=== PATIENT | female | born 1955 | race Hispanic/Latino ===

== ENCOUNTER 2020-03-15 23:39 | Inpatient (IN) | payer OTHER ==
[~2020-03-15] VITALS: Ht 157.5 cm; Wt 66.3 kg
[2020-03-16] MEDS ORDERED: IPRATROPIUM/ALBUTEROL SULFATE 4 GM INH INH STA (00:03)
--- NOTE | 2020-03-16 00:23 | NUR ---
CALLED [facility] FOR ADMIT. NO BEDS AVAIL AT THIS TIME
--- NOTE | 2020-03-16 00:50 | NUR ---
SPOKE WITH ANTHONY AT [facility] TRANSFER [facility] NO BEDS AVAIL IN HOSPITAL
--- NOTE | 2020-03-16 01:00 | NUR ---
CALLED [facility] TRANSFER [facility]. NO BEDS AVAIL
--- NOTE | 2020-03-16 01:06 | Emergency Department Note ---
History of Present Illnes History of Present Illness Chief Complaint: Respiratory History of Present Illness This is a 64 year old female .Chief Complaint Comment PT C/O SOB WITH DRY COU GH FOR 3-4DAYS. STATES COVID + TESTED ON February ON [facility].. PT ALSO C/O R-LUNG/CHEST HURTING WITH COUGHING. Historian: Patient Arrival Mode: Car Onset (how long ago): day(s) (3) Location: CHEST Quality: DULL Radiation: Denies non-radiation, Denies back, Denies neck, Denies extremity, Denies abdomen, Denies periumbilical, Denies flank, Denies proximal, Denies distal, Denies other Severity: moderate Onset quality: gradual Duration (how long): day(s) (3) Timing of current episode: constant Progression: worsening Chronicity: new Context: Denies recent illness, Denies recent surgery, Denies recent imm obilization, Denies recent travel, Denies trauma/injury, Denies new medications, Denies hx of DVT/PE, Denies non-compliance w/ medications, Denies other Relieving factors: none Exacerbating factors: none Associated symptoms: Reports cough, Reports shortness of breath; Denies denies other symptoms, Denies confusion, Denies chest pain, Denies diaphoresis, Denies fever/chills, Denies headaches, Denies loss of appetite, Denies malaise, Denies nausea/vomiting, Denies rash, Denies seizure, Denies syncope, Denies weakness, Denies other Treatments prior to arrival: none Past Medical/Family History Physician Review I have reviewed the patient's past medical and family history. Any updates have been documented here. Past Medical History Recent Fever: No Clinical Suspicion of Infectio: No New/Unexplained Change in Ment: No Past Medical History: Hypertension, Diabetes Past Surgical History: Hysterectomy, Other Surgery: LIPOSUCTION Social History Smoking Cessation: Never Smoker Alcohol Use: None Any Illegal Drug Use: No Physically hurt or threatened: No Other Any Pre-Existing Lines (PICC,: No Review of Systems Review of Systems Constitutional: Reports no symptoms EENTM: Reports no symptoms Cardiovascular: Reports no symptoms Respiratory: Reports as per HPI Gastrointestinal: Reports no symptoms Genitourinary: Reports no symptoms Musculoskeletal: Reports no symptoms Integumentary: Reports no symptoms Neurological: Reports no symptoms Psychological: Reports no symptoms Endocrine: Reports no symptoms Hematological/Lymphatic: Reports no symptoms Physical Exam Related Data Triage Vital Signs Vital Signs Date Time Temp Pulse Resp B/P (MAP) Pulse Ox O2 Delivery O2 Flow Rate FiO2 03/15/20 23:49 96.6 94 22 187/88 84 Room Air 03/15/20 23:56 3.0 Vital signs reviewed: Yes Physical Exam CONSTITUTIONAL Constitutional: Present well-developed, Present well-nourished, Present distressed HENT HENT: Present normocephalic, Present atraumatic, Present oropharynx clear/moist, Present nose normal HENT L/R: Present left ext ear normal, Present right ext ear normal EYES Eyes: Reports PERRL, Reports conjunctivae normal NECK Neck: Present ROM normal PULMONARY Pulmonary: Present effort normal, Present rhonchi CARDIOVASCULAR Cardiovascular: Present regular rhythm, Present heart sounds normal, Present capillary refill normal, Present normal rate GASTROINTESTINAL Abdominal: Present soft, Present nontender, Present bowel sounds normal GENITOURINARY Genitourinary: Present exam deferred SKIN Skin: Present warm, Present dry MUSCULOSKELETAL Musculoskeletal: Present ROM normal NEUROLOGICAL Neurological: Present alert, Present oriented x 3, Present no gross motor or sensory deficits PSYCHOLOGICAL Psychological: Present mood/affect normal, Present judgement normal Results Laboratory Lab results reviewed: Yes Imaging Imaging results reviewed: Yes Critical Care Time Total Critical Care Time (min): 45 Critical care time exclusive o: separately billable procedures Critcal care necessary due to: respiratory failure Critcal care time spent by me: develop tx plan w patient/surrogate, discussion w consultants, discussion w primary provider, evaluation patient response to tx, examination of patient, obtaining hx from patient/surrogate, order/review laboratory studies, order/review radiographic studies, pulse oximetry, re- evaluation of patient condition, review of old charts Assessment & Plan Medical Decision Making MDM COVID PNEUMONIA.. BACTERIAL PNEUMONIA Reassessment Reassessment time: 01:05 Reassessment SAME Assessment & Plan Final Impression: (1) Dyspnea (2) Hypoxia (3) Pneumonia due to COVID-19 virus Last Vital Signs Date Time Temp Pulse Resp B/P (MAP) Pulse Ox O2 Delivery O2 Flow Rate FiO2 03/15/20 23:56 3.0 03/15/20 23:49 96.6 94 22 187/88 84 Room Air ALBERTO PATINO MD Mar 16, 2020 00:50
[2020-03-16] MEDS ORDERED: CEFTRIAXONE SOD 1 GM VIAL IV ONE (01:15)
[2020-03-16] MEDS ORDERED: DEXAMETHASONE SOD PHOS 10 MG/1 ML VIAL IV ONE (01:15)
[2020-03-16] MEDS ORDERED: INSULIN REGULAR, HUMAN 100 UNIT/1 ML 3ML VIAL IV ONE (01:15)
--- NOTE | 2020-03-16 01:51 | Diagnostic Imaging Report ---
EXAMINATION: CXR 1 W - [facility] INDICATION: Covid Positive, short of breath COMPARISON: None FINDINGS: TUBES and LINES: None. LUNGS: Normal lung volumes. Scattered bilateral patchy airspace opacities. PLEURA: No pleural effusion or pneumothorax. HEART AND MEDIASTINUM: The cardiomediastinal silhouette is unremarkable. BONES AND SOFT TISSUES: No acute osseous lesion. Soft tissues are unremarkable. UPPER ABDOMEN: No free air under the diaphragm. IMPRESSION: Findings compatible with multifocal viral pneumonia. Signed by: Tee Boswell DO on 03/16/2020 1:48 AM
[2020-03-16] MEDS ORDERED: CEFTRIAXONE SOD 1 GM/NS 50 ML 50 ML IV ONE (02:09)
--- NOTE | 2020-03-16 02:23 | NUR ---
SPOKE WITH ZACHARY JAMISON AT [facility]. PT WILL BE ADMITED TO ER RM 5 SOON AVAIL.
--- NOTE | 2020-03-16 03:16 | NUR ---
CALLED [facility] FOR TRANSPORT. ETA 1 TO 1.5HRS
--- NOTE | 2020-03-16 03:59 | NUR ---
PT RESTING QUIETLY WITH LIGHTS DIMMED,ON 3LNC WITH STATS 97%, HEART RATE 71. NO COMPLAINTS AT THIS TIME. AWAITING EMS TRANSPORT
--- NOTE | 2020-03-16 04:35 | NUR ---
REC'D CALL FROM [facility]. ER RM 5 NOT AVAIL. AT THIS TIME DUE TO CRITICAL PATIENTS IN ER. EMS ARRIVED-CALLED [facility]- THEY WILL HAVE CREW RETURN TO STATION AND WILL SEND OUT NEW CREW AT CHANGE OF SHIFT AT 0600.
[2020-03-16] MEDS: SODIUM CHLORIDE 0.9% 1000ML 1,000 ML IV SCH ×3 (04:46→20:46)
[2020-03-16] MEDS ORDERED: SODIUM CHLORIDE 0.9% 1000ML 1,000 ML ONE (04:48)
--- NOTE | 2020-03-16 04:48 | NUR ---
STARTED NS AT 100CC/HR PER ADMIT ORDERS. PT ASLEEP WITH MASK IN PLACE, O2 VIA NC AT 3L. NO OBVIOUS DISTRESS.
--- NOTE | 2020-03-16 06:35 | NUR ---
PT RESTING QUIETLY WITH EYES CLOSED. NO OBVIOUS ACUTE DISTRESS NOTED.
--- NOTE | 2020-03-16 06:37 | NUR ---
CALLED [facility] FOR TRANSPORT AFTER 714. EMS ETA BETWEEN 0730 AND 0800.
--- NOTE | 2020-03-16 06:49 | NUR ---
PT HAS INHALER AT BEDSIDE THAT IS TO GO WITH PT TO [facility]
--- NOTE | 2020-03-16 07:22 | NUR ---
REPORT TO GEN KAYE FOR RM 299.
--- NOTE | 2020-03-16 08:00 | NUR ---
Daughter called and asked about pt's status.
--- NOTE | 2020-03-16 08:19 | NUR ---
Called [facility] and they have an ETA of about 15 minutes.
--- NOTE | 2020-03-16 09:15 | NUR ---
PT ARRIVED FROM [facility] VIA EMS. PT IS AAOX4. EDUCATED PT ABOUT FALL PRECAUTIONS. PT VERBALIZED UNDERSTANDING. CALL LIGHT WITH IN EASY REACH. INSTRUCTED PT TO USE CALL LIGHT FOR ALL THE NEEDS. BED IS LOW AND LOCKED. SIDE RAILS X2. PT IS ON 4L NC. PT DENIES NEEDS AT THIS TIME.
[2020-03-16 09:30] VITALS: BP 133/69
--- NOTE | 2020-03-16 09:30 | NUR ---
HEMANT KAYE AND INFORMED PT ARRIVAL TO THE UNIT
--- NOTE | 2020-03-16 09:45 | NUR ---
INFORMED NEW CONSULT TO CAMPOS ANTONY AT [facility].
[2020-03-16 09:54] VITALS: BP 133/69
[2020-03-16 10:00] VITALS: BP 133/69
[2020-03-16] MEDS: AZITHROMYCIN 500MG/NS 250 ML 250 ML IV SCH (10:00)
[2020-03-16] MEDS ORDERED: AMLODIPINE BESYL5 MG PO (10:29)
[2020-03-16] MEDS ORDERED: METFORMIN HCL500 M1 PO (10:29)
[2020-03-16] MEDS ORDERED: LOSARTAN-HCTZ1 EAC1 (10:29)
[2020-03-16] MEDS ORDERED: DEXTROSE 50% SYRINGE 50 ML IV PRN (10:45)
[2020-03-16] MEDS: GUAIFENESIN 200 MG/10 ML UDC PO PRN ×2 (11:00→17:25)
[2020-03-16] MEDS: INSULIN LISPRO 100 UNIT/1 ML 3ML VIAL SQ SCH ×3 (11:00→21:00)
[2020-03-16] MEDS: HYDROCHLOROTHIAZIDE 25 MG TAB PO SCH (11:54)
[2020-03-16] MEDS: LOSARTAN POTASSIUM 100 MG TAB PO SCH (11:54)
[2020-03-16] MEDS: METFORMIN HCL 500 MG TAB CR PO SCH ×2 (11:54→17:41)
[2020-03-16] MEDS: AMLODIPINE BESYLATE 5 MG TAB PO SCH (11:54)
[2020-03-16] MEDS: ALBUTEROL SULFATE HFA 8GM INHALATION AEROSOL INH PRN (17:21)
[2020-03-16] MEDS: CHOLECALCIFEROL 400 UNIT TAB PO SCH (17:41)
[2020-03-16] MEDS: ASCORBIC ACID 500 MG TAB PO SCH (17:41)
[2020-03-16] MEDS: ZINC SULFATE 220 MG CAP PO SCH (17:42)
[2020-03-16] MEDS: ENOXAPARIN 30 MG/0.3 ML SYR SC SCH (17:42)
[2020-03-16 18:10] VITALS: BP 119/74
--- NOTE | 2020-03-16 19:10 | NUR ---
BEDSIDE SHIFT REPORT GIVEN TO THE WOOD HEEL FITTER MACHINE RN. PT DENIED FURTHER NEEDS
--- NOTE | 2020-03-16 19:22 | NUR ---
Received change of shift report from AM nurse. Walking rounds completed.
--- NOTE | 2020-03-16 19:37 | Consultation ---
DATE OF CONSULTATION: REASON FOR CONSULTATION: COVID-19. HISTORY OF PRESENT ILLNESS: This patient who is a very pleasant history of diabetes mellitus, comes in with one-week history of shortness of breath and cough. She has been sick for a week, but getting worse for last couple of days. The patient was admitted, I am asked to see her. PAST MEDICAL HISTORY: Diabetes mellitus. PAST SURGICAL HISTORY: Denies. ALLERGIES: NKA. SOCIAL HISTORY: There is no smoking, drug abuse, or alcohol abuse. FAMILY HISTORY: Unremarkable. PHYSICAL EXAMINATION: GENERAL: She is currently alert, oriented, does not seem in acute distress. VITAL SIGNS: Stable, currently afebrile. IMPRESSION: Coronavirus disease-19, concerned about superimposed bacterial infection, diabetes mellitus. Lovenox 0.5 mg/kg q.12 hours and dexamethasone 6 mg daily for 10 days. Supplement vitamin C, D and zinc. Oxygen as tolerated, showed improving, can wean down oxygen. MD MARY Moore/MODL /[id number]
--- NOTE | 2020-03-16 19:47 | History and Physical ---
HISTORY OF PRESENT ILLNESS: The patient is a 64-year-old female with a history of diabetes mellitus, who was diagnosed with COVID-19 two weeks ago. The patient started with cough and increased shortness of breath and presented to the emergency room for admission. The patient is admitted for COVID pneumonia and hypoxia. PAST MEDICAL HISTORY: History of diabetes mellitus, history of hypertension. REVIEW OF SYSTEMS: Negative for chest pain. Positive for shortness of breath. No nausea, no vomiting, or diarrhea. No hematochezia. No hematemesis. No blurry vision. No diplopia. PAST SURGICAL HISTORY: History of hysterectomy and . The patient's other surgeries include liposuction. SOCIAL HISTORY: Nonsmoker. No EtOH. No IV drug abuse. MEDICATIONS: Includes: 1. Amlodipine 5 mg. 2. Losartan 125 on each day. 3. Metformin 500 mg q. 24 hours. PHYSICAL EXAMINATION: VITAL SIGNS: Temperature is 98.2, respirations of 18, blood pressure is 133/69, pulse oximetry of 95% on 4 L of oxygen. HEENT: Normocephalic and atraumatic. Pupils reactive. CVS: S1 and S2 normal. Regular rate and rhythm. ABDOMEN: Soft, nontender. LUNGS: Decreased air entry. EXTREMITIES: No clubbing, no cyanosis, no edema. SEROLOGY: Coronavirus detected. LABORATORY VALUES: Reviewed. Imaging studies reviewed, which shows findings compatible with multifocal viral pneumonia. ASSESSMENT: Ms. Yanet Schneider with: 1. COVID-19 pneumonia. 2. Diabetes. 3. Hypertension. PLAN: Continue with current medication management. She is on hydrochlorothiazide 25, losartan 100, metformin 500. The patient has been started on azithromycin, dexamethasone 6 mg daily. The patient is also on hydrocodone for pain control, enoxaparin 30 mg twice a day and Rocephin 1 g once a day has also been given. The patient has been started on medium dose sliding scale and metformin 500 mg twice a day. Further recommendation per clinical course. We will continue monitoring her electrolytes. We will continue monitoring her chest x-ray and also oxygen status. Further recommendation per clinical course. We will continue to monitor the patient. Consult with ID and Pulmonary has been done. Bryant Antonio MD [facility]/MODL /[id number]
[2020-03-16 20:00] VITALS: BP 132/71
[2020-03-16] MEDS: CEFTRIAXONE SOD 1 GM/NS 50 ML 50 ML IV SCH (20:46)
[2020-03-16] MEDS ORDERED: CEFTRIAXONE SOD 1 GM VIAL IV SCH (21:00)
[2020-03-16] MEDS ORDERED: INSULIN LISPRO 100 UNIT/1 ML 3ML VIAL SQ ONE (21:45)
[2020-03-17] VITALS (8 sets, daily range): BP systolic 135–146; BP diastolic 74–78
[2020-03-17] MEDS: GUAIFENESIN 200 MG/10 ML UDC PO PRN ×2 (04:06→20:38)
[2020-03-17] MEDS: HYDROCODONE/APAP 5MG-325MG TAB PO PRN ×2 (04:06→20:38)
--- NOTE | 2020-03-17 04:17 | NUR ---
Patient coughing. Given meds for cough and also pain-4 generalized.
[2020-03-17 06:03] LABS: BASOPHILS % 0.2 % (0.0-1.0); HEMATOCRIT 37.1 % (34.2-44.1); HEMOGLOBIN 12.2 g/dL (12.0-16.0); LYMPHOCYTES # (AUTO) 0.6 (1.0-3.2); LYMPHOCYTES % 3.2 % (18.0-39.1); MEAN CORPUSCULAR HEMOGLOBIN 29.5 pg (28-32); MEAN CORPUSCULAR HGB CONC 32.9 g/dL (31-35); MEAN CORPUSCULAR VOLUME 89.8 fL (81-99); MONOCYTES % 5.1 % (4.4-11.3); NEUTROPHILS # (AUTO) 17.8 (2.1-6.9); NEUTROPHILS % 89.5 % (38.7-80.0); PLATELET COUNT 378 x10e3/uL (140-360); RED BLOOD COUNT 4.13 x10e6/uL (3.6-5.1); RED CELL DISTRIBUTION WIDTH 11.9 % (11.7-14.4)
[2020-03-17 06:30] LABS: ANION GAP 13.9 mmol/L (8-16); BLOOD UREA NITROGEN 20 mg/dL (7-26); BUN/CREATININE RATIO 29 (6-25); CALCIUM 8.3 mg/dL (8.4-10.2); CARBON DIOXIDE 27 mmol/L (22-29); CHLORIDE 102 mmol/L (98-107); EST GLOMERULAR FILTRATION RATE > 60 ML/MIN (60-); GLUCOSE 256 mg/dL (74-118); POTASSIUM 3.9 mmol/L (3.5-5.1); SODIUM 139 mmol/L (136-145)
--- NOTE | 2020-03-17 07:04 | NUR ---
CHANGE OF SHIFT REPORT RECEIVED FROM PM NURSE. PT IN STABLE CONDITION. WILL CONTINUE TO MONITOR.
[2020-03-17] MEDS: INSULIN LISPRO 100 UNIT/1 ML 3ML VIAL SQ SCH ×4 (08:22→21:00)
[2020-03-17] MEDS ORDERED: DEXAMETHASONE PHOS 4MG/ML 5ML MULTIDOSE VIAL IV SCH (09:00)
[2020-03-17] MEDS: SODIUM CHLORIDE 0.9% 1000ML 1,000 ML IV SCH ×2 (09:30→19:30)
[2020-03-17] MEDS: ZINC SULFATE 220 MG CAP PO SCH (09:34)
[2020-03-17] MEDS: HYDROCHLOROTHIAZIDE 25 MG TAB PO SCH (09:34)
[2020-03-17] MEDS: AMLODIPINE BESYLATE 5 MG TAB PO SCH (09:34)
[2020-03-17] MEDS: ASCORBIC ACID 500 MG TAB PO SCH ×2 (09:34→18:00)
[2020-03-17] MEDS: AZITHROMYCIN 500MG/NS 250 ML 250 ML IV SCH (09:34)
[2020-03-17] MEDS: CHOLECALCIFEROL 400 UNIT TAB PO SCH ×2 (09:34→18:00)
[2020-03-17] MEDS: LOSARTAN POTASSIUM 100 MG TAB PO SCH (09:35)
[2020-03-17] MEDS: METFORMIN HCL 500 MG TAB CR PO SCH ×2 (09:35→18:00)
[2020-03-17] MEDS: DEXAMETHASONE PHOS 4MG/ML 6 MG in SODIUM CHLORIDE 0.9% 50ML 50 ML IV SCH (14:29)
[2020-03-17] MEDS: ENOXAPARIN 30 MG/0.3 ML SYR SC SCH (18:00)
--- NOTE | 2020-03-17 20:06 | NUR ---
Received change of shift report from AM nurse. Walking rounds completed.
[2020-03-17] MEDS: CEFTRIAXONE SOD 1 GM/NS 50 ML 50 ML IV SCH (20:37)
--- NOTE | 2020-03-17 22:28 | Progress Note ---
DATE: SUBJECTIVE: 64-year-old female, on 3 L of oxygen, saturating 96% to 100%, tachycardic. This morning, the patient is afebrile and stable. OBJECTIVE: VITAL SIGNS: Temperature is 98.1, pulse is 74, respirations are 16, blood pressure is 135/75, pulse oximetry of 96%. HEENT: Normocephalic and atraumatic. LUNGS: Decreased breath sounds. CARDIOVASCULAR: S1, S2. Regular rate now. ABDOMEN: Soft, nontender, nondistended. EXTREMITIES: No clubbing, no cyanosis, no edema. LABORATORY VALUES: White count is 19,000 today, hemoglobin of 12 and hematocrit 37.2. Chemistry; sodium 139, potassium 3.9, BUN of 20 and creatinine 0.70. Blood cultures negative so far. IMAGING STUDIES: From yesterday, stable, consistent with multifocal pneumonia. ASSESSMENT: Coronavirus disease-19 pneumonia with possible superimposed bacterial infection. The patient is currently on enoxaparin 30 mg b.i.d., dexamethasone, losartan/hydrochlorothiazide, azithromycin. The patient is also on hydrocodone for pain control and acetaminophen for fever. Chemistries; sodium 139, potassium 3.9, BUN of 20 and creatinine 0.70. Glucoses have been running high, has been covered with insulin sliding scale. Continue to monitor the patient. Glucose control to be better. We will continue monitoring her heart rate. Further recommendation per clinical course and continue with 3 L of nasal cannula. MD KATE Hung/MODL /[id number]
[2020-03-18] VITALS (8 sets, daily range): BP systolic 133–167; BP diastolic 77–88
[2020-03-18] MEDS: SODIUM CHLORIDE 0.9% 1000ML 1,000 ML IV SCH ×2 (04:17→15:30)
[2020-03-18] MEDS: ALBUTEROL SULFATE HFA 8GM INHALATION AEROSOL INH PRN ×3 (04:50→22:00)
--- NOTE | 2020-03-18 04:51 | NUR ---
Patient o2 sats drop 62 to 89. Rapid called Patient placed on nonrebreather. Sats increased to 95%. Patient resting with no farther distress noted.
--- NOTE | 2020-03-18 05:46 | NUR ---
Patient resting quitly at this time. Continue monitor.
[2020-03-18 06:30] LABS: BASOPHILS % 0.2 % (0.0-1.0); HEMATOCRIT 38.4 % (34.2-44.1); HEMOGLOBIN 12.6 g/dL (12.0-16.0); LYMPHOCYTES # (AUTO) 0.5 (1.0-3.2); LYMPHOCYTES % 2.8 % (18.0-39.1); MEAN CORPUSCULAR HEMOGLOBIN 29.7 pg (28-32); MEAN CORPUSCULAR HGB CONC 32.8 g/dL (31-35); MEAN CORPUSCULAR VOLUME 90.6 fL (81-99); MONOCYTES # (AUTO) 0.8 (0.2-0.8); MONOCYTES % 4.3 % (4.4-11.3); NEUTROPHILS # (AUTO) 15.7 (2.1-6.9); NEUTROPHILS % 90.8 % (38.7-80.0); PLATELET COUNT 399 x10e3/uL (140-360); RED BLOOD COUNT 4.24 x10e6/uL (3.6-5.1)
--- NOTE | 2020-03-18 06:47 | NUR ---
Paged Dr Antonio to inform of patient change in condition.
--- NOTE | 2020-03-18 07:00 | NUR ---
BEDSIDE SHIFT REPORT RECEIVED FROM SURFACE WATER TECHNICIAN RN. PT DENIES NEEDS AT THIS TIME.
[2020-03-18] MEDS: INSULIN LISPRO 100 UNIT/1 ML 3ML VIAL SQ SCH ×4 (07:30→22:48)
[2020-03-18 08:13] LABS: BAND NEUTROPHILS % (MANUAL) 3 %; LYMPHOCYTES % (MANUAL) 1 % (19-48); MONOCYTES % (MANUAL) 3 % (3.4-9.0); NEUTROPHILS % (MANUAL) 93 % (40-74)
[2020-03-18] MEDS: METFORMIN HCL 500 MG TAB CR PO SCH ×2 (08:42→17:06)
[2020-03-18] MEDS: HYDROCHLOROTHIAZIDE 25 MG TAB PO SCH (08:43)
[2020-03-18] MEDS: ZINC SULFATE 220 MG CAP PO SCH (08:43)
[2020-03-18] MEDS: CHOLECALCIFEROL 400 UNIT TAB PO SCH ×2 (08:43→17:06)
[2020-03-18] MEDS: ASCORBIC ACID 500 MG TAB PO SCH ×2 (08:43→17:06)
[2020-03-18] MEDS: AMLODIPINE BESYLATE 5 MG TAB PO SCH (08:43)
[2020-03-18] MEDS: LOSARTAN POTASSIUM 100 MG TAB PO SCH (08:43)
[2020-03-18] MEDS: DEXAMETHASONE PHOS 4MG/ML 6 MG in SODIUM CHLORIDE 0.9% 50ML 50 ML IV SCH (09:08)
[2020-03-18] MEDS: AZITHROMYCIN 500MG/NS 250 ML 250 ML IV SCH (10:14)
--- NOTE | 2020-03-18 12:34 | Progress Note ---
DATE: SUBJECTIVE: The patient is a 64-year-old female with history of COVID pneumonia. The patient is currently on Rocephin, dexamethasone, Lovenox. Continues to be on hydrocodone for pain control. Today morning, the patient rapid response was called. The patient has been on non-rebreather. Continues to do well, starting okay on non-rebreather. OBJECTIVE: VITAL SIGNS: Currently, temperature is 97.4, pulse of 61, respirations of 22, blood pressure is 152/81, pulse oximetry of 98% on high-flow. HEENT: Normocephalic and atraumatic. Pupils are reactive. CVS: S1 and S2 normal. LUNGS: Decreased air entry. ABDOMEN: Soft, nontender. EXTREMITIES: No clubbing. No cyanosis. No edema. ASSESSMENT: Ms. Ramirez with: 1. COVID-19 pneumonia with superimposed bacterial infection. 2. History of hypertension. 3. Hyperlipidemia. 4. Diabetes mellitus, uncontrolled. PLAN: Continue current management. A consult with Dr. Yang has been done. We will continue to monitor the patient with Dr. Woo. Dexamethasone, Lovenox, and antibiotics are on board at this time. Further recommendation per clinical course. Glucose control to be achieved and we will monitor the patient currently on high-flow oxygen. MD KATE Hung/MODL /[id number]
[2020-03-18] MEDS: ENOXAPARIN 30 MG/0.3 ML SYR SC SCH (17:06)
--- NOTE | 2020-03-18 18:36 | Consultation ---
DATE OF CONSULTATION: Pulmonary Critical Care Consultation CHIEF COMPLAINT: Cough and pain in the back with inspiration. HISTORY OF PRESENT ILLNESS: The patient is a 64-year-old woman. She has a history of diabetes. She reports being ill for about 2 weeks. She notices cough productive of red tinged phlegm. She also reports pain in her upper back with inspiration. She has dyspnea and fatigue. She has also had some fevers at home. PAST SURGICAL HISTORY: Status post hysterectomy. PAST MEDICAL HISTORY: 1. Diabetes. 2. Hypertension. SOCIAL HISTORY: The patient is a nonsmoker. She does not drink. ALLERGIES: THERE ARE NO KNOWN DRUG ALLERGIES. REVIEW OF SYSTEMS: The patient has some fevers. There is no headache. She has no neck pain. She is not having chest pain except with inspiration. She has some pain in her back. She has some mild cough. She has no abdominal pain. She has no nausea or vomiting. She has no leg swelling. PHYSICAL EXAMINATION: VITAL SIGNS: The patient is afebrile. The blood pressure is 141/85, saturation is 98%. HEENT: Shows no facial swelling or erythema. CARDIAC: Reveals regular rate and rhythm with normal S1, S2. LUNGS: Auscultation of lungs reveals rhonchorous breath sounds bilaterally. There is no wheezing. ABDOMEN: Soft, nontender. There is no rebound or guarding. EXTREMITIES: Shows no leg edema or calf tenderness. There is no cyanosis or clubbing. SKIN: Shows no rashes. NEUROLOGICAL: Shows no focal abnormalities. LABORATORY DATA: BUN to creatinine ratio is 20 to 0.7. Other electrolytes are within normal limits. Blood sugars are now 160 to 200. RADIOGRAPHIC DATA: Chest x-ray shows bilateral infiltrates consistent with multifocal pneumonia. IMPRESSION: 1. Viral pneumonia and probable COVID-19 infection. 2. Diabetes. 3. Hypertension. PLAN: 1. Continue oxygen. She is now on 6 L. We will try and wean this. 2. Continue dexamethasone. 3. Continue current antibiotics. 4. Monitor and control blood sugars. 5. Monitor and control blood pressure. Mesfin Yang MD [facility]/QUENTINL /[id number]
--- NOTE | 2020-03-18 19:30 | NUR ---
BEDSIDE SHIFT REPORT RECEIVED FROM DAY RN. O2 ON PER N/C AT 4 l. USING NRB PRN. RESPIRATIONS ARE EVEN AND UNLABORED. TELE ON - SR. PT RESTING IN BED IN SEMI FOWLERS POSITION. RT AC 20G INTACT AND FLUSHES.PT UP TO BEDSIDE COMMODE WITH MINIMAL ASSIST. CALL LIGHT WITHIN REACH. BED LOCKED AND IN LOW POSITION.
[2020-03-18] MEDS: ACETAMINOPHEN 325 MG TAB PO PRN (20:21)
--- NOTE | 2020-03-18 22:00 | NUR ---
PIV LEAKING. 22 G PLACED IN LEFT WRIST. SITE HEALTHY. OLD IV SITE D/C WITH CATHETER INTACT.PT TOLERATED PROCEDURE WELL.
[2020-03-18] MEDS: CEFTRIAXONE SOD 1 GM/NS 50 ML 50 ML IV SCH (22:48)
[2020-03-19] VITALS (7 sets, daily range): BP systolic 140–168; BP diastolic 76–88
[2020-03-19] MEDS: SODIUM CHLORIDE 0.9% 1000ML 1,000 ML IV SCH ×4 (01:30→22:36)
[2020-03-19] MEDS: ACETAMINOPHEN 325 MG TAB PO PRN (05:34)
[2020-03-19 06:43] LABS: BASOPHILS % 0.3 % (0.0-1.0); EOSINOPHILS % 0.1 % (0.0-6.0); HEMATOCRIT 37.8 % (34.2-44.1); HEMOGLOBIN 12.5 g/dL (12.0-16.0); LYMPHOCYTES # (AUTO) 0.9 (1.0-3.2); MEAN CORPUSCULAR HEMOGLOBIN 29.1 pg (28-32); MEAN CORPUSCULAR HGB CONC 33.1 g/dL (31-35); MEAN CORPUSCULAR VOLUME 87.9 fL (81-99); MONOCYTES # (AUTO) 0.5 (0.2-0.8); MONOCYTES % 3.5 % (4.4-11.3); NEUTROPHILS # (AUTO) 11.2 (2.1-6.9); NEUTROPHILS % 86.3 % (38.7-80.0); PLATELET COUNT 355 x10e3/uL (140-360); RED CELL DISTRIBUTION WIDTH 11.9 % (11.7-14.4)
--- NOTE | 2020-03-19 07:00 | NUR ---
BEDSIDE SHIFT REPORT RECEIVED FROM REGIONAL BRANCH MANAGER RN. PT DENIES NEEDS AT THIS TIME.
[2020-03-19 07:02] LABS: ANION GAP 11.9 mmol/L (8-16); BLOOD UREA NITROGEN 11 mg/dL (7-26); BUN/CREATININE RATIO 18 (6-25); CALCIUM 8.5 mg/dL (8.4-10.2); CARBON DIOXIDE 27 mmol/L (22-29); CHLORIDE 102 mmol/L (98-107); EST GLOMERULAR FILTRATION RATE > 60 ML/MIN (60-); GLUCOSE 117 mg/dL (74-118); SODIUM 138 mmol/L (136-145)
[2020-03-19 07:03] LABS: POTASSIUM 2.9 mmol/L (3.5-5.1)
--- NOTE | 2020-03-19 07:07 | NUR ---
LAB CALLED WITH K CRITICAL 2.9. ENDORSED TO DAY RN- HE WILL CALL PHYSICIAN FOR ORDERS.
[2020-03-19] MEDS ORDERED: POTASSIUM CHLORIDE 20MEQ/100ML 200 ML IV ONE (07:30)
[2020-03-19] MEDS: INSULIN LISPRO 100 UNIT/1 ML 3ML VIAL SQ SCH ×4 (07:30→23:30)
[2020-03-19] MEDS: METFORMIN HCL 500 MG TAB CR PO SCH ×2 (08:44→16:39)
[2020-03-19] MEDS: AMLODIPINE BESYLATE 5 MG TAB PO SCH (08:44)
[2020-03-19] MEDS: HYDROCHLOROTHIAZIDE 25 MG TAB PO SCH (08:44)
[2020-03-19] MEDS: LOSARTAN POTASSIUM 100 MG TAB PO SCH (08:44)
[2020-03-19] MEDS: ASCORBIC ACID 500 MG TAB PO SCH ×2 (08:45→16:39)
[2020-03-19] MEDS: CHOLECALCIFEROL 400 UNIT TAB PO SCH ×2 (08:45→16:39)
[2020-03-19] MEDS: ZINC SULFATE 220 MG CAP PO SCH (08:45)
[2020-03-19] MEDS ORDERED: AMLODIPINE BESYLATE 5 MG TAB PO SCH (09:00)
[2020-03-19] MEDS: DEXAMETHASONE PHOS 4MG/ML 6 MG in SODIUM CHLORIDE 0.9% 50ML 50 ML IV SCH (09:58)
[2020-03-19] MEDS ORDERED: CALCIUM CARBONATE 500 MG CHEWABLE TABS PO PRN (10:00)
[2020-03-19] MEDS: AZITHROMYCIN 500MG/NS 250 ML 250 ML IV SCH (10:29)
[2020-03-19] MEDS: PANTOPRAZOLE 40 MG 10ML VIAL IV SCH (10:29)
--- NOTE | 2020-03-19 10:53 | Progress Note ---
DATE: SUBJECTIVE: This is a 64-year-old female, who came in with COVID-19 pneumonia. The patient continues to have beyond 6-7 L of oxygen with mouth. Continues to have some shortness of breath on minimal exertion. Currently on Rocephin, dexamethasone, Lovenox, hydrocodone for pain control. Systolic blood pressure constantly remaining elevated and sugars are controlled right now. MEDICATIONS: Medicine list reviewed. OBJECTIVE: VITAL SIGNS: Temperature 97.5, pulse of 81, respirations of 20, 92% on 5-6 L of oxygen. HEENT: Normocephalic and atraumatic. Pupils are reactive. CVS: S1 and S2 normal. LUNGS: Decreased air entry. ABDOMEN: Soft, nontender, and nondistended. EXTREMITIES: No clubbing, no cyanosis, and/or no edema. LABORATORY DATA: The patient's white count from today, white count has gone down to 13,000, and platelet count down to 355, neutrophil count at 86.3. IMAGING STUDIES: None done since . ASSESSMENT AND PLAN: Ms. Yanet Ramirez with: 1. Viral pneumonia, coronavirus disease-2019 pneumonia. 2. Diabetes. 3. Hypertension. PLAN: 1. Continue oxygen. She is on 6 L weaning protocol. 2. Continue with dexamethasone. She is on antibiotics. Continue the same. 3. Tighter blood sugar control, so we will add amlodipine 5 mg regimen for blood pressure control. Further recommendation per clinical course. The patient is stable. We will monitor her saturation and wean off oxygen. MD KATE Hung/QUENTINL /[id number]
[2020-03-19] MEDS: ENOXAPARIN 30 MG/0.3 ML SYR SC SCH (16:39)
--- NOTE | 2020-03-19 17:10 | Progress Note ---
DATE: SUBJECTIVE: The patient feels slightly better, but still has some pain in her back and chest with inspiration. She is still on 6 L of oxygen. PHYSICAL EXAMINATION: VITAL SIGNS: The patient's blood pressure is 142/86, saturation is 94%. She is on 6 L nasal cannula. HEENT: No facial swelling or erythema. CARDIAC: Regular rate and rhythm with normal S1, S2. LUNGS: Auscultation of lungs reveals rhonchorous breath sounds bilaterally. There is no wheezing. ABDOMEN: Soft, nontender. There is no rebound or guarding. EXTREMITIES: No leg edema or calf tenderness. There is no cyanosis or clubbing. SKIN: No rashes. NEUROLOGICAL: No focal abnormalities. LABORATORY DATA: White blood cell count is 13 and the hemoglobin 12.5, and platelet count is 355. Potassium is 2.9. Other electrolytes are within normal limits. IMPRESSION: 1. Acute respiratory failure. 2. Viral pneumonia and coronavirus disease-19 infection. 3. Hypokalemia. 4. Diabetes. 5. Hypertension. PLAN: 1. Continue to wean oxygen. 2. Continue Fleet dexamethasone. 3. Complete current antibiotics. 4. Monitor and control blood sugars. 5. Repeat chest x-ray in a.m.. MD MARCIE Thurman/JODIE /[id number]
[2020-03-19] MEDS: ALBUTEROL SULFATE HFA 8GM INHALATION AEROSOL INH PRN (19:00)
--- NOTE | 2020-03-19 19:36 | NUR ---
BEDSIDE SHIFT REPORT RECEIVED FROM DAY RN. PT IS ALERT AND ORIENTED X3. O2 7L HF N/C ON. NONREBREATHER MASK AT BEDSIDE PRN. RESPIRATIONS ARE EVEN AND UNLABORED. TELE ON. LEFT PIV NS INFUSING AT 50 ML/HR SITE HEALTHY. CALL LIGHT WITHIN REACH. BED LOCKED AND IN LOW POSITION. PT VOIDING WITHOUT DIFFICULTY PER BEDSIDE COMMODE.
[2020-03-19] MEDS: CEFTRIAXONE SOD 1 GM/NS 50 ML 50 ML IV SCH (22:36)
[2020-03-20] VITALS (7 sets, daily range): BP systolic 150–163; BP diastolic 71–84
--- NOTE | 2020-03-20 07:00 | NUR ---
BEDSIDE SHIFT REPORT RECEIVED FROM COLLAR SETTER RN. PT DENIES NEEDS AT THIS TIME.
[2020-03-20] MEDS: SODIUM CHLORIDE 0.9% 1000ML 1,000 ML IV SCH ×2 (07:30→17:30)
--- NOTE | 2020-03-20 07:41 | NUR ---
REPORT GIVEN TO DAY RN. RADIOLOGY CALLED FOR CXR. BMP TO BE DRAWN.CONDITION STABLE.
[2020-03-20 08:18] LABS: ANION GAP 15.7 mmol/L (8-16); BLOOD UREA NITROGEN 10 mg/dL (7-26); BUN/CREATININE RATIO 16 (6-25); CALCIUM 8.4 mg/dL (8.4-10.2); CARBON DIOXIDE 29 mmol/L (22-29); CHLORIDE 101 mmol/L (98-107); CREATININE, SERUM 0.62 mg/dL (0.57-1.11); EST GLOMERULAR FILTRATION RATE > 60 ML/MIN (60-); GLUCOSE 154 mg/dL (74-118); POTASSIUM 3.7 mmol/L (3.5-5.1); SODIUM 142 mmol/L (136-145)
--- NOTE | 2020-03-20 08:22 | Progress Note ---
DATE: SUBJECTIVE: The patient is a 64-year-old female, who came in with COVID pneumonia. The patient continues to be on oxygen. Does have some shortness of breath on deep breath and also on exertion. Currently on insulin, she is on Rocephin, metformin, Lovenox 30 mg acute b.i.d. pantoprazole for GI prophylaxis and also for reflux. The patient is also on azithromycin and hydrocodone as needed for pain. OBJECTIVE: VITAL SIGNS: Temperature is 98.1, pulse of 67, respirations of 20, blood pressure is 150/81, pulse oximetry of 100%, she is on high-flow. LABORATORY VALUES: White count is 13,000 yesterday, down. Chemistries 170s to 180s serology as noted. ASSESSMENT: Ms. Yanet Ramirez with: 1. COVID-19 pneumonia, acute respiratory failure. 2. Diabetes mellitus. 3. Hypokalemia, replaced yesterday. 4. Hypertension. PLAN: Continue to wean oxygen. Continue on dexamethasone. Continue antibiotic. Continue on insulin. Continue on weaning of oxygen further recommendation per clinical course. We will continue to monitor the patient along with consultants. MD KATE Hung/MODL /[id number]
[2020-03-20] MEDS: INSULIN LISPRO 100 UNIT/1 ML 3ML VIAL SQ SCH ×4 (08:52→21:00)
[2020-03-20] MEDS: METFORMIN HCL 500 MG TAB CR PO SCH ×2 (08:59→17:37)
[2020-03-20] MEDS: PANTOPRAZOLE 40 MG 10ML VIAL IV SCH (08:59)
[2020-03-20] MEDS: HYDROCHLOROTHIAZIDE 25 MG TAB PO SCH (09:00)
[2020-03-20] MEDS: ZINC SULFATE 220 MG CAP PO SCH (09:00)
[2020-03-20] MEDS: LOSARTAN POTASSIUM 100 MG TAB PO SCH (09:00)
[2020-03-20] MEDS: AMLODIPINE BESYLATE 10 MG TAB PO SCH (09:00)
[2020-03-20] MEDS: CHOLECALCIFEROL 400 UNIT TAB PO SCH ×2 (09:00→17:37)
[2020-03-20] MEDS: ASCORBIC ACID 500 MG TAB PO SCH ×2 (09:00→17:37)
[2020-03-20] MEDS: DEXAMETHASONE PHOS 4MG/ML 6 MG in SODIUM CHLORIDE 0.9% 50ML 50 ML IV SCH (09:02)
--- NOTE | 2020-03-20 10:29 | Diagnostic Imaging Report ---
EXAMINATION: CHEST SINGLE (PORTABLE) INDICATION: Viral pneumonia COMPARISON: Chest radiograph of 03/15/2020 FINDINGS: LINES/TUBES:EKG leads overlie the chest. LUNGS:The lungs are moderately inflated. Increasing bilateral multifocal airspace opacities. PLEURA:No pleural effusion or pneumothorax. MEDIASTINUM:The cardiomediastinal silhouette appears normal in size and shape. BONES/SOFT TISSUES:No acute osseous injury. ABDOMEN:No free air under the diaphragm. IMPRESSION: Increasing bilateral multifocal airspace opacities consistent with known viral pneumonia. Signed by: Lotus Paredes MD on 03/20/2020 10:26 AM
--- NOTE | 2020-03-20 16:23 | Progress Note ---
DATE: SUBJECTIVE: The patient is still having some dyspnea. She reports some nasal congestion. PHYSICAL EXAMINATION: VITAL SIGNS: The blood pressure is 152/71, saturation is now 91% on 8 L. HEENT: Shows no facial swelling or erythema. CARDIAC: Reveals regular rate and rhythm with normal S1 and S2. LUNGS: Auscultation of lungs reveals crackles at the bases. There is no wheezing. ABDOMEN: Soft and nontender. There is no rebound or guarding. EXTREMITIES: Shows no leg edema or calf tenderness. There is no cyanosis or clubbing. SKIN: Shows no rashes. LABORATORY DATA: BUN, creatinine and electrolytes are within normal limits. IMPRESSION: 1. Viral pneumonia and COVID-19 infection. 2. Diabetes mellitus. 3. Hypertension. PLAN: 1. Continue oxygen and wean as tolerated. 2. Dexamethasone. 3. Continue to monitor and control blood sugars. 4. Lovenox. 5. Continue antibiotics. Mesfin Yang MD [facility]/JODIE /[id number]
[2020-03-20] MEDS: ENOXAPARIN 30 MG/0.3 ML SYR SC SCH (17:37)
--- NOTE | 2020-03-20 19:15 | NUR ---
Received nursing shift report from morning nurse. Pt alert and oriented to name. Denies pain at this time. O2 @8L hi flow NC. Call mccarthy within reach.
[2020-03-20] MEDS: CEFTRIAXONE SOD 1 GM/NS 50 ML 50 ML IV SCH (21:00)
[2020-03-21] VITALS (9 sets, daily range): BP systolic 137–161; BP diastolic 65–79
[2020-03-21 05:43] LABS: BASOPHILS % 0.3 % (0.0-1.0); HEMATOCRIT 37.7 % (34.2-44.1); HEMOGLOBIN 12.6 g/dL (12.0-16.0); LYMPHOCYTES # (AUTO) 0.6 (1.0-3.2); LYMPHOCYTES % 4.5 % (18.0-39.1); MEAN CORPUSCULAR HEMOGLOBIN 29.4 pg (28-32); MEAN CORPUSCULAR HGB CONC 33.4 g/dL (31-35); MEAN CORPUSCULAR VOLUME 87.9 fL (81-99); MONOCYTES # (AUTO) 0.8 (0.2-0.8); MONOCYTES % 5.9 % (4.4-11.3); NEUTROPHILS # (AUTO) 12.3 (2.1-6.9); NEUTROPHILS % 86.8 % (38.7-80.0); PLATELET COUNT 346 x10e3/uL (140-360); RED BLOOD COUNT 4.29 x10e6/uL (3.6-5.1)
[2020-03-21 06:11] LABS: ANION GAP 15.4 mmol/L (8-16); BLOOD UREA NITROGEN 11 mg/dL (7-26); BUN/CREATININE RATIO 19 (6-25); CALCIUM 8.5 mg/dL (8.4-10.2); CARBON DIOXIDE 25 mmol/L (22-29); CHLORIDE 102 mmol/L (98-107); CREATININE, SERUM 0.59 mg/dL (0.57-1.11); EST GLOMERULAR FILTRATION RATE > 60 ML/MIN (60-); GLUCOSE 129 mg/dL (74-118); POTASSIUM 3.4 mmol/L (3.5-5.1); SODIUM 139 mmol/L (136-145)
[2020-03-21] MEDS: INSULIN LISPRO 100 UNIT/1 ML 3ML VIAL SQ SCH ×4 (07:30→21:00)
--- NOTE | 2020-03-21 07:30 | NUR ---
PATIENT IS AWAKE, ALERT, AND IN STABLE CONDITION WITH NO S/S OF RESPIRATORY DISTRESS- NO PAIN VOICED. 02 APPLIED AT 6L HIGH FLOW; NON-REBREATHER AVAILABLE FOR PATIENT NEAR BEDSIDE. TELEMETRY APPLIED. PATIENT REFUSING CONTINUOUS FLUID AT THIS TIME. CALL LIGHT IS WITHIN REACH, PATIENT INSTRUCTED TO CALL FOR ASSISTANCE NEEDED.
[2020-03-21] MEDS: ASCORBIC ACID 500 MG TAB PO SCH ×2 (08:06→16:33)
[2020-03-21] MEDS: CHOLECALCIFEROL 400 UNIT TAB PO SCH ×2 (08:06→16:33)
[2020-03-21] MEDS: METFORMIN HCL 500 MG TAB CR PO SCH ×2 (08:06→16:33)
[2020-03-21] MEDS: AMLODIPINE BESYLATE 10 MG TAB PO SCH (08:06)
[2020-03-21] MEDS: ZINC SULFATE 220 MG CAP PO SCH (08:06)
[2020-03-21] MEDS: HYDROCHLOROTHIAZIDE 25 MG TAB PO SCH (08:07)
[2020-03-21] MEDS: LOSARTAN POTASSIUM 100 MG TAB PO SCH (08:07)
[2020-03-21] MEDS: PANTOPRAZOLE 40 MG 10ML VIAL IV SCH (08:07)
[2020-03-21] MEDS: VANCOMYCIN 1GM/NS 250 ML 250 ML IV SCH ×2 (11:37→22:58)
[2020-03-21] MEDS: DEXAMETHASONE SOD PHOS INJ 4 MG/ML VIAL IV SCH (11:37)
[2020-03-21] MEDS: MEROPENEM 500MG/ NS 50ML 50 ML IV SCH ×2 (13:29→22:00)
[2020-03-21] MEDS: SODIUM CHLORIDE 0.9% 1000ML 1,000 ML IV SCH (13:30)
[2020-03-21] MEDS ORDERED: POTASSIUM CHLORIDE 20 MEQ TAB CR PO SCH (15:00)
--- NOTE | 2020-03-21 15:20 | Progress Note ---
DATE: Pulmonary Critical Care Progress Note SUBJECTIVE: The patient feels better overall, but still has some back pain. She notes some congestion. PHYSICAL EXAMINATION: VITAL SIGNS: The blood pressure is 150/72 and saturation is 94%. The pulse is 84. HEENT: Shows no facial swelling or erythema. CARDIAC: Reveals regular rate and rhythm with normal S1 and S2. LUNGS: Auscultation of lungs reveals crackles at the bases. There is no wheezing. ABDOMEN: Soft and nontender. There is no rebound or guarding. EXTREMITIES: Shows no leg edema or calf tenderness. There is no cyanosis or clubbing. SKIN: Shows no rashes. NEUROLOGICAL: Shows no focal abnormalities. LABORATORY DATA: BUN to creatinine ratio is normal. Electrolytes within normal limits. White blood cell count is 14 and other blood counts were normal. IMPRESSION: 1. Viral pneumonia and COVID-19 infection. 2. Diabetes mellitus. 3. Hypertension. PLAN: 1. Continue oxygen and wean as tolerated. 2. Complete dexamethasone. 3. Continue to monitor and control blood sugars. 4. Lovenox. 5. Complete antibiotics. Mesfin Yang MD [facility]/MODL /[id number]
[2020-03-21] MEDS: ENOXAPARIN 30 MG/0.3 ML SYR SC SCH (16:34)
--- NOTE | 2020-03-21 19:26 | NUR ---
PATIENT IS IN STABLE CONDITION WITH NO S/S OF RESPIRATORY DISTRESS- NO PAIN VOICED. TELEMETRY APPLIED. 02 APPLIED AT 5L HIGH FLOW WITH EXTENSION; NON-REBREATHER AVAILABLE FOR PATIENT NEAR BEDSIDE. CALL LIGHT IS WITHIN REACH, PATIENT INSTRUCTED TO CALL FOR ASSISTANCE NEEDED. REPORT GIVEN TO ONCOMING NURSE.
--- NOTE | 2020-03-21 19:27 | NUR ---
Nutrition Screen Note RD Recommendation for Physician: - Continue current diet Plan of Care: RD following, monitoring for tolerance and adequacy Nutrition reason for involvement: Early LOS Primary Diagnose(s): pneumonia due to Covid-19 PMH: DM, HTN Ht: 62 in Wt: 151 lb BMI: 27.6 kg/m2 IBW: [address] Assessment: 03/21: 64 YOF admitted for pneumonia due to Covid-19, pt tested + 2 weeks [employer]. Pt with hypoxia and SOB on admit. Pt evaluated for LOS. Attempted to call pt room, no answer- unable to obtain hx at this time. No wt loss or poor intake reported per admit. No GI distress, LBM 03/20. Skin intact. Chart reviewed. Labs and meds noted. Will continue to monitor. Current Diet: 1800 ADA Malnutrition Evaluation (03/21/20) The patient does not meet criteria for a specified degree of malnutrition at this time. Will re-evaluate at follow-up as appropriate. Unable to assess per current isolation protocol. Diet Education Needs Assessment: Diet education not indicated at this time Diet tolerance: tolerating Nutrition Care Level: low Signed: Promise De La Paz RD, LD, [facility]
--- NOTE | 2020-03-21 19:38 | NUR ---
Completed shift report from morning nurse. Pt alert and oriented to name, lying in bed HOB 60 degrees. Denies pain at this time. Call mccarthy within reach.
--- NOTE | 2020-03-21 20:06 | Progress Note ---
DATE: SUBJECTIVE: A 64-year-old female, who came in with COVID pneumonia. The patient still continues to be sating about 4 L on nasal cannula. Does complain of some oral stomatitis. The patient complains of some pain on eating. OBJECTIVE: VITAL SIGNS: Temperature is 97.7, pulse of 88, respirations of 18, blood pressure is 142/76, pulse oximetry of 91% on 4 L of oxygen. HEENT: Normocephalic and atraumatic. Pupils are reactive. Oral mucosa with candidiasis. CVS: S1 and S2 regular. LUNGS: Decreased air entry. ABDOMEN: Soft, nontender, nondistended. EXTREMITIES: No clubbing, no cyanosis, no edema. IMAGING STUDIES: Done from yesterday shows increased bilateral multifocal airspace opacities consistent with mild pneumonia. MEDICATIONS: The patient has an addition of vancomycin and changed to meropenem. ASSESSMENT: Ms. James Holt with: 1. COVID pneumonia. 2. Diabetes mellitus. 3. Hypertension. 4. Hypoxemia. 5. Respiratory failure. PLAN: Continue with dexamethasone. Continue with changed antibiotic, vancomycin, Merrem, Lovenox and also continue with oxygenation and O2 supplementation. Further recommendation per clinical course. Bryant Antonio MD [facility]/MODL /[id number]
[2020-03-21 20:28] LABS: BASOPHILS # (AUTO) 0.1 (0.0-0.1); BASOPHILS % 0.4 % (0.0-1.0); HEMATOCRIT 40.1 % (34.2-44.1); HEMOGLOBIN 13.3 g/dL (12.0-16.0); LYMPHOCYTES # (AUTO) 0.3 (1.0-3.2); LYMPHOCYTES % 1.9 % (18.0-39.1); MEAN CORPUSCULAR HEMOGLOBIN 29.5 pg (28-32); MEAN CORPUSCULAR HGB CONC 33.2 g/dL (31-35); MEAN CORPUSCULAR VOLUME 88.9 fL (81-99); MONOCYTES # (AUTO) 0.5 (0.2-0.8); MONOCYTES % 3.1 % (4.4-11.3); NEUTROPHILS # (AUTO) 16.1 (2.1-6.9); NEUTROPHILS % 92.8 % (38.7-80.0); PLATELET COUNT 365 x10e3/uL (140-360); RED BLOOD COUNT 4.51 x10e6/uL (3.6-5.1); RED CELL DISTRIBUTION WIDTH 12.1 % (11.7-14.4)
[2020-03-21] MEDS: NYSTATIN SUSPENSION 5 ML UDC PO SCH (21:00)
[2020-03-21] MEDS: HYDROCODONE/APAP 5MG-325MG TAB PO PRN (22:00)
[2020-03-22] VITALS (8 sets, daily range): BP systolic 133–163; BP diastolic 68–89
--- NOTE | 2020-03-22 04:54 | NUR ---
Blood drawn x1 stick, Pt tolerated well. No acute distress noted. O2 @5L Hi flow NC. Call light within reach.
[2020-03-22] MEDS: NYSTATIN SUSPENSION 5 ML UDC PO SCH ×5 (05:00→21:00)
[2020-03-22] MEDS: MEROPENEM 500MG/ NS 50ML 50 ML IV SCH ×3 (05:54→22:20)
[2020-03-22 05:59] LABS: ANION GAP 13.9 mmol/L (8-16); BLOOD UREA NITROGEN 13 mg/dL (7-26); BUN/CREATININE RATIO 20 (6-25); CALCIUM 8.7 mg/dL (8.4-10.2); CARBON DIOXIDE 27 mmol/L (22-29); CHLORIDE 99 mmol/L (98-107); CREATININE, SERUM 0.66 mg/dL (0.57-1.11); EST GLOMERULAR FILTRATION RATE > 60 ML/MIN (60-); GLUCOSE 272 mg/dL (74-118); POTASSIUM 3.9 mmol/L (3.5-5.1); SODIUM 136 mmol/L (136-145)
[2020-03-22] MEDS: INSULIN LISPRO 100 UNIT/1 ML 3ML VIAL SQ SCH ×4 (07:30→21:00)
--- NOTE | 2020-03-22 07:30 | NUR ---
PATIENT IS AWAKE, ALERT, AND IN STABLE CONDITION WITH NO S/S OF RESPIRATORY DISTRESS. PATIENT DENIES PAIN. TELEMETRY APPLIED. 02 APPLIED AT 7L NC HIGH FLOW; NON-REBREATHER AVAILABLE NEAR PATIENT'S BEDSIDE. BEDSIDE COMMODE AVAILABLE BY PATIENT. CALL LIGHT IS WITHIN REACH, PATIENT INSTRUCTED TO CALL FOR ASSISTANCE NEEDED.
[2020-03-22] MEDS: PANTOPRAZOLE 40 MG 10ML VIAL IV SCH (08:54)
[2020-03-22] MEDS: METFORMIN HCL 500 MG TAB CR PO SCH ×2 (08:54→16:10)
[2020-03-22] MEDS: LOSARTAN POTASSIUM 100 MG TAB PO SCH (08:55)
[2020-03-22] MEDS: HYDROCHLOROTHIAZIDE 25 MG TAB PO SCH (08:55)
[2020-03-22] MEDS: CHOLECALCIFEROL 400 UNIT TAB PO SCH ×2 (08:56→16:11)
[2020-03-22] MEDS: AMLODIPINE BESYLATE 10 MG TAB PO SCH (08:56)
[2020-03-22] MEDS: ASCORBIC ACID 500 MG TAB PO SCH ×2 (08:56→16:11)
[2020-03-22] MEDS: ZINC SULFATE 220 MG CAP PO SCH (08:56)
--- NOTE | 2020-03-22 09:29 | Diagnostic Imaging Report ---
EXAMINATION: CHEST SINGLE (PORTABLE) INDICATION: Viral pneumonia COMPARISON: Chest radiograph 03/20/2020 FINDINGS: LINES/TUBES:EKG leads overlie the chest. LUNGS:Lung volumes are low. Multifocal bilateral patchy airspace opacities. PLEURA:No pleural effusion or pneumothorax. MEDIASTINUM:The cardiomediastinal silhouette appears normal in size and shape. BONES/SOFT TISSUES:No acute osseous injury. ABDOMEN:No free air under the diaphragm. IMPRESSION: Multifocal pneumonia, slightly worse compared to 03/20/2020. Signed by: Lotus Paredes MD on 03/22/2020 9:26 AM
[2020-03-22] MEDS: VANCOMYCIN 1GM/NS 250 ML 250 ML IV SCH ×2 (10:55→23:30)
[2020-03-22] MEDS: DEXAMETHASONE SOD PHOS INJ 4 MG/ML VIAL IV SCH (13:00)
[2020-03-22] MEDS: ENOXAPARIN 30 MG/0.3 ML SYR SC SCH (16:11)
--- NOTE | 2020-03-22 19:19 | NUR ---
PATIENT IS IN STABLE CONDITION WITH NO S/S OF RESPIRATORY DISTRESS- NO PAIN VOICED. TELEMETRY APPLIED. 02 APPLIED AT 6L NC HIGH FLOW; NON-REBREATHER AVAILABLE NEAR PATIENT AT BEDSIDE. BEDSIDE COMMODE AVAILABLE NEAR PATIENT'S BEDSIDE. CALL LIGHT IS WITHIN REACH, PATIENT INSTRUCTED TO CALL FOR ASSISTANCE NEEDED. REPORT GIVEN TO ONCOMING NURSE.
--- NOTE | 2020-03-22 19:35 | NUR ---
Patient visited in room during nursing rounds. On droplet isolation for positive covid test. Alert and oriented x3. Ambulatory in room and uses bedside commode prn. Sinus rhythm (80) on telemetry reading. Pt on IV antibiotic treatment (IV Vancomycin and IV Merrem) as scheduled. O2 saturation 95% on 6L Hi-flow NC. Call mccarthy within reach. Will monitor pt closely.
--- NOTE | 2020-03-22 19:40 | Progress Note ---
DATE: SUBJECTIVE: The patient briefly required oxygen today, but is now back to 6 L. She continues to have some pain with inspiration. She has some cough. PHYSICAL EXAMINATION: VITAL SIGNS: The patient is afebrile. The vital signs are stable. CARDIAC: Reveals regular rate and rhythm with normal S1 and S2. LUNGS: Auscultation of lungs reveals rhonchorous breath sounds. ABDOMEN: Soft and nontender. LABORATORY DATA: White blood cell count is 17.29, hemoglobin is 13.3, and the platelet count is 365. The BUN to creatinine ratio is normal. The electrolytes are within normal limits and the blood sugar is mildly elevated at 211. RADIOGRAPHIC DATA: Chest x-ray shows multifocal pneumonia. IMPRESSION: 1. Viral pneumonia and COVID-19 infection. 2. Diabetes mellitus. 3. Hypertension. PLAN: 1. Continue oxygen. 2. Complete dexamethasone. 3. Continue Lovenox. 4. Complete antibiotics. 5. Continue to monitor and control blood sugars. Mesfin Yang MD [facility]/JODIE /[id number]
--- NOTE | 2020-03-22 20:25 | Progress Note ---
DATE: SUBJECTIVE: The patient is a 64-year-old female, who came in with COVID pneumonia. The patient continues to desat and satting at about 7 L with 92%. The patient continues to feel short of breath, had sores in the mouth. The patient has been treated with nystatin for candidiasis. OBJECTIVE: VITAL SIGNS: Temperature is 98.0, blood pressure is 141/60, sat is 91, pulse oximetry of 95% on nasal cannula 7 L. HEENT: Normocephalic and atraumatic. LUNGS: Decreased air entry in all lung ballard. ABDOMEN: Soft, nontender, nondistended. EXTREMITIES: No clubbing, no cyanosis, no edema. LABORATORY STUDIES: White count is gone up to 17,000 again, hemoglobin 13.3, hematocrit of 40.2, neutrophil count 92.8. Chemistry; shows sodium of 136, BUN of 13, creatinine 0.66. The glucose in the 200s to 300s. Imaging study shows worsening of pneumonia. ASSESSMENT: 1. COVID-Pneumonia. 2. Acute respiratory failure. 3. Hypertension. 4. Hypoxemia. PLAN: The patient is currently on insulin, enoxaparin 30 mg twice a day, meropenem, and vancomycin. Zosyn was discontinued. PLAN: Continue current management. Continue with dexamethasone. Further recommendation per clinical course. We will try monitoring her blood sugars better, also start her on basal insulin. Bryant Antonio MD [facility]/MODL /[id number]
[2020-03-22] MEDS: INSULIN GLARGINE 100 UNITS/ML VIAL SQ SCH (21:00)
--- NOTE | 2020-03-22 21:00 | NUR ---
Visited pt in room along with [employer] (Cassi). Pt stated she had lost her personal pulse oximeter machine and that she could not find it anywhere in the room. Patient assisted in looking for the missing pulse oximeter but without any success. Pt aware it was not taken by nurse or [employer]. Pt does not seem too upset about it.
[2020-03-23] VITALS (8 sets, daily range): BP systolic 128–176; BP diastolic 69–84
[2020-03-23] MEDS: AMLODIPINE BESYLATE 10 MG TAB PO SCH (03:40)
[2020-03-23] MEDS: NYSTATIN SUSPENSION 5 ML UDC PO SCH ×5 (05:30→21:15)
[2020-03-23] MEDS: MEROPENEM 500MG/ NS 50ML 50 ML IV SCH ×3 (06:00→21:30)
[2020-03-23 06:22] LABS: BASOPHILS % 0.3 % (0.0-1.0); EOSINOPHILS % 0.1 % (0.0-6.0); HEMATOCRIT 38.8 % (34.2-44.1); HEMOGLOBIN 12.7 g/dL (12.0-16.0); LYMPHOCYTES # (AUTO) 0.8 (1.0-3.2); LYMPHOCYTES % 5.8 % (18.0-39.1); MEAN CORPUSCULAR HEMOGLOBIN 28.9 pg (28-32); MEAN CORPUSCULAR HGB CONC 32.7 g/dL (31-35); MEAN CORPUSCULAR VOLUME 88.4 fL (81-99); MONOCYTES % 7.1 % (4.4-11.3); NEUTROPHILS # (AUTO) 11.7 (2.1-6.9); NEUTROPHILS % 84.9 % (38.7-80.0); PLATELET COUNT 373 x10e3/uL (140-360); RED BLOOD COUNT 4.39 x10e6/uL (3.6-5.1); RED CELL DISTRIBUTION WIDTH 12.1 % (11.7-14.4)
[2020-03-23 07:00] LABS: ALANINE AMINOTRANSFERASE 28 IU/L (0-55); ALBUMIN 2.3 g/dL (3.5-5.0); ALBUMIN/GLOBULIN RATIO 0.5 (0.8-2.0); ALKALINE PHOSPHATASE 71 IU/L (40-150); ANION GAP 17.1 mmol/L (8-16); BLOOD UREA NITROGEN 11 mg/dL (7-26); BUN/CREATININE RATIO 20 (6-25); CALCIUM 8.9 mg/dL (8.4-10.2); CARBON DIOXIDE 24 mmol/L (22-29); CHLORIDE 101 mmol/L (98-107); CREATININE, SERUM 0.56 mg/dL (0.57-1.11); EST GLOMERULAR FILTRATION RATE > 60 ML/MIN (60-); GLUCOSE 145 mg/dL (74-118); POTASSIUM 4.1 mmol/L (3.5-5.1); SODIUM 138 mmol/L (136-145)
[2020-03-23] MEDS: METFORMIN HCL 500 MG TAB CR PO SCH ×2 (09:24→16:00)
[2020-03-23] MEDS: PANTOPRAZOLE 40 MG 10ML VIAL IV SCH (09:24)
[2020-03-23] MEDS: ZINC SULFATE 220 MG CAP PO SCH (09:25)
[2020-03-23] MEDS: CHOLECALCIFEROL 400 UNIT TAB PO SCH ×2 (09:25→16:00)
[2020-03-23] MEDS: LOSARTAN POTASSIUM 100 MG TAB PO SCH (09:25)
[2020-03-23] MEDS: ASCORBIC ACID 500 MG TAB PO SCH ×2 (09:25→16:00)
[2020-03-23] MEDS: HYDROCHLOROTHIAZIDE 25 MG TAB PO SCH (09:25)
[2020-03-23] MEDS: INSULIN LISPRO 100 UNIT/1 ML 3ML VIAL SQ SCH ×4 (09:26→21:15)
--- NOTE | 2020-03-23 09:30 | NUR ---
patient appearing very anxious and worked up. instructed patient to take slow breaths and focus on the present. reminded patient that she will be okay and are here if she needs us.
--- NOTE | 2020-03-23 09:52 | Progress Note ---
DATE: SUBJECTIVE: The patient seen and evaluated. Available labs and notes reviewed. Discussed with Dr. Woo. Please refer to chart for more information. The patient is seen with the nurse. REVIEW OF SYSTEMS: Remains with shortness of breath and anxiety. Patient tells me that she is on Zoloft at home. She does not know the dosage. Otherwise, no nausea, vomiting, fever, chest pain. Shortness of breath seems to be stable and improved slightly. OBJECTIVE: VITAL SIGNS: Temperature 98.3, pulse 83, respirations 24, blood pressure 144/70. GENERAL: Alert and oriented, no acute distress. The patient has a 6 L of high-flow nasal cannula with saturation of 93-98%, also has a 10 L of a non-rebreather on standby in case when her anxiety attacks or when she goes to bedside commode. The patient was tested on 03/20/2020, and showed O2 saturation of 88% on room air. CV: S1 and S2. CHEST: Equal expansion. Decreased breath sounds. No acute distress. ABDOMEN: Soft, obese, nontender. HEENT: Moist. No pallor. No JVD. MEDICATIONS: Reviewed. The patient is on meropenem, vancomycin IV, vitamin C, vitamin D, Lovenox and zinc sulfate. LABORATORY STUDIES: White count improved to 13.72 from 17.29 with a platelet count of 373, creatinine of 0.56. Vancomycin trough was 7.5 yesterday on 03/22/2020. Serology: Coronavirus PCR was detected on 03/16/2020.. IMAGING: No new radiology studies available. ASSESSMENT AND PLAN: 1. Coronavirus disease-19 negative pneumonia. 2. Bilateral multifocal pneumonia. 3. Anxiety. 4. Depression. 5. Diabetes. 6. Hypertension. 7. Leukocytosis is improved. 8. Status post Zithromax and Rocephin. Now, patient is started on Merrem and vancomycin IV on 03/21/2020 secondary to multifocal pneumonia. We will continue with Lovenox, vitamin C, dexamethasone, and zinc. Dexamethasone for a total of 10 days. Clinically, no acute distress. Please refer to chart for more information. Dictated by Jorge Eric PA-C (Al) Ean Woo MD /MODL /[id number]
[2020-03-23] MEDS: VANCOMYCIN 1GM/NS 250 ML 250 ML IV SCH ×2 (11:29→23:20)
[2020-03-23] MEDS: DEXAMETHASONE SOD PHOS INJ 4 MG/ML VIAL IV SCH (11:36)
--- NOTE | 2020-03-23 13:40 | Progress Note ---
DATE: SUBJECTIVE: The patient is having less dyspnea. Her oxygen is down to 6 L. She has less chest discomfort. PHYSICAL EXAMINATION: VITAL SIGNS: The saturation is 100% on 6 L. Blood pressure is 149/78 and the pulse is 80. HEENT: No facial swelling or erythema. CARDIAC: Regular rate and rhythm with normal S1, S2. LUNGS: Auscultation of lungs reveals crackles at the bases. There is no wheezing. ABDOMEN: Soft, nontender. There is no rebound or guarding. EXTREMITIES: No leg edema or calf tenderness. There is no cyanosis or clubbing. SKIN: No rashes. NEUROLOGICAL: No focal abnormalities. LABORATORY DATA: White blood cell count is 13.7, hemoglobin is 12.7. The platelet count is 373. BUN to creatinine ratio is normal. Other electrolytes within normal limits. IMPRESSION: 1. Acute respiratory failure. 2. Viral pneumonia and coronavirus disease-19 infection. 3. Diabetes mellitus. 4. Hypertension. PLAN: 1. Continue to wean oxygen. 2. Continue Lovenox. 3. Complete dexamethasone. 4. Monitor and control blood sugars. Mesfin Yang MD [facility]/MODL /[id number]
--- NOTE | 2020-03-23 16:35 | Progress Note ---
DATE: SUBJECTIVE: A 64-year-old female, who came in COVID pneumonia with acute respiratory failure on 7 L of oxygen and she is 100% at this time. depression and anxiety. OBJECTIVE: VITAL SIGNS: Temperature is 98.3, pulse of 88, respirations of 20, blood pressure is 149/78. The patient is on 6 L at 100% pulse oximetry. HEENT: Normocephalic. CVS: S1 and S2 normal. Mild decrease in her Anna dermatitis. LUNGS: Decreased air entry. ABDOMEN: Soft, nontender, nondistended. EXTREMITIES: No clubbing, no cyanosis, no edema. LABORATORY VALUES: Today's white count is 13,000, decreased from 17 yesterday, neutrophil count is low. Chemistries; show sodium 138, potassium 4.1, BUN of 11, creatinine 0.56. Glucoses running in the 180s. ASSESSMENT: Ms. Yanet Ramirez with: 1. Acute respiratory failure secondary to COVID-19 pneumonia. 2. Diabetes. 3. Hypertension. Continue with dexamethasone. Continue with Lovenox. Continue with antibiotic. As per ID recommendation wean off oxygen. Possible discharge tomorrow depending on saturation and also level of functionality. Further recommendation per clinical course. We will continue to monitor the patient. MD KATE Hung/MODL /[id number]
--- NOTE | 2020-03-23 17:02 | NUR ---
patient moved from 6L to 4L on high flow nasal cannula. tolerating well.
--- NOTE | 2020-03-23 19:25 | NUR ---
Patient visited in room during nursing rounds. On droplet isolation for positive covid test. Alert and oriented x3. Ambulatory in room and uses bedside commode prn. Sinus rhythm (77) on telemetry reading. Pt on IV antibiotic treatment (IV Vancomycin and IV Merrem) as scheduled. O2 saturation 96% on 4L Hi-flow NC. Call mccarthy within reach. Will monitor pt closely.
--- NOTE | 2020-03-23 19:30 | NUR ---
Current peripheral IV (22g on left wrist) placed on 03/18/20. Pt refused for new peripheral IV placement. Pt stated "as long as it works, I'd like to keep it." Current IV flushes fine and no sign of infiltration at this time.
[2020-03-23] MEDS: SERTRALINE HCL 50 MG TAB PO SCH (21:15)
[2020-03-23] MEDS: INSULIN GLARGINE 100 UNITS/ML VIAL SQ SCH (21:15)
[2020-03-24] VITALS (7 sets, daily range): BP systolic 128–172; BP diastolic 65–97
[2020-03-24] MEDS: NYSTATIN SUSPENSION 5 ML UDC PO SCH ×5 (04:30→22:09)
[2020-03-24] MEDS: LOSARTAN POTASSIUM 100 MG TAB PO SCH (06:15)
[2020-03-24] MEDS: MEROPENEM 500MG/ NS 50ML 50 ML IV SCH ×3 (06:15→22:09)
[2020-03-24] MEDS: INSULIN LISPRO 100 UNIT/1 ML 3ML VIAL SQ SCH ×4 (07:30→21:00)
--- NOTE | 2020-03-24 07:48 | Progress Note ---
DATE: SUBJECTIVE: The patient is here for COVID pneumonia. The patient has been doing well on oxygen, still saturating at 6 L on 100%. No other complaints. The patient's mouth ulcers and александр have decreased. OBJECTIVE: VITAL SIGNS: Temperature is 97.8, T-max of 99.0, blood pressure 172/79, pulse oximetry of 93% on 4 L right now. HEENT: Normocephalic, atraumatic. CVS: S1 and S2 normal. Regular rate and rhythm. ABDOMEN: Soft, nontender, nondistended. EXTREMITIES: No clubbing, no cyanosis, no edema. ASSESSMENT: Ms. Ramirez with acute respiratory failure, secondary to coronavirus disease pneumonia, diabetes mellitus, hypertension. PLAN: Continue with Lovenox. Continue with antibiotics. Wean off oxygen. Possibly can discharge today with O2. MEDICATIONS: The patient is currently on amlodipine 10 mg and we will keep on insulin protocol and insulin glargine. Further recommendation per clinical course. Bryant Antonio MD [facility]/MODL /[id number]
[2020-03-24] MEDS: ALBUTEROL SULFATE HFA 8GM INHALATION AEROSOL INH PRN (07:50)
[2020-03-24] MEDS: CHOLECALCIFEROL 400 UNIT TAB PO SCH ×2 (08:51→16:26)
[2020-03-24] MEDS: ZINC SULFATE 220 MG CAP PO SCH (08:51)
[2020-03-24] MEDS: METFORMIN HCL 500 MG TAB CR PO SCH ×2 (08:51→16:26)
[2020-03-24] MEDS: HYDROCHLOROTHIAZIDE 25 MG TAB PO SCH (08:51)
[2020-03-24] MEDS: ASCORBIC ACID 500 MG TAB PO SCH ×2 (08:51→16:26)
[2020-03-24] MEDS: PANTOPRAZOLE 40 MG 10ML VIAL IV SCH (08:51)
--- NOTE | 2020-03-24 09:00 | NUR ---
patient switched from 4L high flow to 5L nasal cannula. doing well at this time. wctm.
[2020-03-24 11:01] LABS: BASOPHILS % 0.1 % (0.0-1.0); EOSINOPHILS % 0.2 % (0.0-6.0); HEMATOCRIT 37.8 % (34.2-44.1); HEMOGLOBIN 12.5 g/dL (12.0-16.0); LYMPHOCYTES # (AUTO) 1.2 (1.0-3.2); LYMPHOCYTES % 8.9 % (18.0-39.1); MEAN CORPUSCULAR HEMOGLOBIN 29.2 pg (28-32); MEAN CORPUSCULAR HGB CONC 33.1 g/dL (31-35); MEAN CORPUSCULAR VOLUME 88.3 fL (81-99); MONOCYTES # (AUTO) 1.1 (0.2-0.8); MONOCYTES % 8.4 % (4.4-11.3); NEUTROPHILS # (AUTO) 10.8 (2.1-6.9); NEUTROPHILS % 80.9 % (38.7-80.0); PLATELET COUNT 421 x10e3/uL (140-360); RED BLOOD COUNT 4.28 x10e6/uL (3.6-5.1); RED CELL DISTRIBUTION WIDTH 12.1 % (11.7-14.4)
--- NOTE | 2020-03-24 11:09 | Progress Note ---
DATE: SUBJECTIVE: The patient is seen and evaluated. Available labs and notes reviewed. Discussed with Dr. Woo. Clinically, the patient looks better. She is less distressed. Oxygen is being delivered between 4 to 5 L/minute through the nasal cannula. IV saturation level of 93% to 95%. No complaints. She is happy with the progress. PHYSICAL EXAMINATION: VITAL SIGNS: Temperature 97.6, pulse is 78, respiration 21, and blood pressure 144/97. GENERAL: Alert and oriented. No acute distress. CV: S1 and S2. CHEST: Equal expansion. Decreased breath sounds. No acute distress. ABDOMEN: Soft, nontender, and no distention. HEENT: Moist. No pallor. No JVD. EXTREMITIES: Moves all. MEDICATIONS: Reviewed and from ID point of view, the patient is on zinc sulfate, vitamin C, vitamin D, Merrem, and vancomycin IV. Lovenox dropped out of medication list. LABORATORY STUDIES: White count of 13.72, improved with a hemoglobin of 12.7. No CBC or BMP from today. Creatinine was 0.56. LFT was within normal limit on 03/23. RADIOLOGY STUDIES: No new radiology studies available. ASSESSMENT AND PLAN: 1. COVID-19 pneumonia. 2. Bilateral multifocal pneumonia. 3. Concerned superimposed bacterial infection. 4. Depression. 5. Diabetes. 6. Anxiety. 7. Hypertension. 8. Leukocytosis, improving. 9. No new labs from today. We are going to review with the Lovenox. Get a CBC and BMP today. Follow up with vancomycin trough, which is pending. Continue with other medications. Dexamethasone for 10 days. Wean off oxygen. Further management of this patient is based on daily findings on laboratory and physical examination. Dictated by Jorge Eric PA-C (Al) Ean Woo MD /MODL /[id number]
[2020-03-24 11:51] LABS: ANION GAP 12.6 mmol/L (8-16); BLOOD UREA NITROGEN 11 mg/dL (7-26); BUN/CREATININE RATIO 18 (6-25); CALCIUM 8.8 mg/dL (8.4-10.2); CARBON DIOXIDE 27 mmol/L (22-29); CHLORIDE 100 mmol/L (98-107); CREATININE, SERUM 0.62 mg/dL (0.57-1.11); EST GLOMERULAR FILTRATION RATE > 60 ML/MIN (60-); GLUCOSE 151 mg/dL (74-118); POTASSIUM 3.6 mmol/L (3.5-5.1); SODIUM 136 mmol/L (136-145)
[2020-03-24] MEDS: DEXAMETHASONE SOD PHOS INJ 4 MG/ML VIAL IV SCH (12:29)
[2020-03-24] MEDS: VANCOMYCIN 1GM/NS 250 ML 250 ML IV SCH ×2 (13:08→23:41)
--- NOTE | 2020-03-24 17:32 | Progress Note ---
DATE: SUBJECTIVE: The patient still has some dyspnea, although she is improving. She has less cough. PHYSICAL EXAMINATION: VITAL SIGNS: Blood pressure is 158/77, saturation is 95% on 5 L. Pulse is 81. HEENT: No facial swelling or erythema. CARDIAC: Reveals regular rate and rhythm. Normal S1, S2. LUNGS: Auscultation of lungs reveals crackles at the bases. There is no wheezing. ABDOMEN: Soft and nontender. There is no rebound or guarding. EXTREMITIES: No leg edema or calf tenderness. IMPRESSION: 1. Acute respiratory failure. 2. Viral pneumonia and coronavirus disease-19 infection. 3. Diabetes. 4. Hypertension. PLAN: 1. Continue to wean oxygen. 2. Lovenox. 3. Complete dexamethasone. 4. Monitor and control blood sugars. Mesfin Yang MD [facility]/MODL /[id number]
--- NOTE | 2020-03-24 19:17 | NUR ---
received report from day nurse. patient is resting comfortably in the bed. bed is in lowest position and call light is within reach. will continue to monitor patient.
[2020-03-24] MEDS: INSULIN GLARGINE 100 UNITS/ML VIAL SQ SCH (21:00)
[2020-03-24] MEDS ORDERED: SODIUM CHLORIDE 0.9% 250ML 250 ML ONE (21:41)
[2020-03-24] MEDS: SERTRALINE HCL 50 MG TAB PO SCH (22:09)
[2020-03-24] MEDS: ENOXAPARIN 30 MG/0.3 ML SYR SC SCH (22:09)
[2020-03-24] MEDS: AMLODIPINE BESYLATE 10 MG TAB PO SCH (22:09)
[2020-03-25] VITALS (9 sets, daily range): BP systolic 146–166; BP diastolic 73–87
[2020-03-25] MEDS: NYSTATIN SUSPENSION 5 ML UDC PO SCH ×5 (05:20→21:46)
[2020-03-25] MEDS: MEROPENEM 500MG/ NS 50ML 50 ML IV SCH ×3 (05:20→21:46)
--- NOTE | 2020-03-25 07:00 | NUR ---
RECEIVED REPORT FROM PM RN. PT IS ALERT STANDING AT THE SIDE OF THE BED, PT IS SOB AND ANXIOUS, STATES SHE JUST CAME FROM THE RESTROOM. INSTRUCTED THE PATIENT TO TAKE DEEP BREATHS. PT STATES THAT SHE "SAW THE BLOOD OF BALDEMAR IN HER BED LAST NIGHT" PT GIVEN REASSURANCE, CALL LIGHT WITHIN REACH AND INSTRUCTED PT TO CALL RN FOR HELP
--- NOTE | 2020-03-25 07:05 | NUR ---
change of shift report given to day nurse.
[2020-03-25] MEDS: INSULIN LISPRO 100 UNIT/1 ML 3ML VIAL SQ SCH ×4 (07:30→21:53)
[2020-03-25] MEDS: HYDROCHLOROTHIAZIDE 25 MG TAB PO SCH (09:16)
[2020-03-25] MEDS: LOSARTAN POTASSIUM 100 MG TAB PO SCH (09:16)
[2020-03-25] MEDS: ASCORBIC ACID 500 MG TAB PO SCH ×2 (09:16→16:38)
[2020-03-25] MEDS: PANTOPRAZOLE 40 MG 10ML VIAL IV SCH (09:16)
[2020-03-25] MEDS: METFORMIN HCL 500 MG TAB CR PO SCH ×2 (09:16→16:38)
[2020-03-25] MEDS: CHOLECALCIFEROL 400 UNIT TAB PO SCH ×2 (09:16→16:38)
[2020-03-25] MEDS: ZINC SULFATE 220 MG CAP PO SCH (09:16)
[2020-03-25] MEDS: ENOXAPARIN 30 MG/0.3 ML SYR SC SCH ×2 (09:16→21:46)
[2020-03-25] MEDS: VANCOMYCIN 1GM/NS 250 ML 250 ML IV SCH ×2 (12:17→22:49)
[2020-03-25] MEDS: DEXAMETHASONE SOD PHOS INJ 4 MG/ML VIAL IV SCH (12:17)
--- NOTE | 2020-03-25 17:12 | Progress Note ---
DATE: SUBJECTIVE: The patient still has some dyspnea with exertion. Her O2 is at 5 L. PHYSICAL EXAMINATION: VITAL SIGNS: The patient is afebrile. The blood pressure is 166/90. Heart rate is 70. CARDIAC: Reveals regular rate and rhythm with normal S1 and S2. LUNGS: Auscultation of lungs reveals crackles at the bases. There is no wheezing. ABDOMEN: Soft, nontender. There is no rebound or guarding. EXTREMITIES: Shows no leg edema or calf tenderness. There is no cyanosis or clubbing. SKIN: Shows no rashes. NEUROLOGIC: Shows no focal abnormalities. LABORATORY DATA: Blood sugars are 150-250. BUN to creatinine ratio is normal. Other electrolytes are within normal limits. CBC is within normal limits. IMPRESSION: 1. Acute respiratory failure. 2. Viral pneumonia, coronavirus disease-19 infection. 3. Diabetes. PLAN: 1. Decrease oxygen to 4 L. 2. Home O2 evaluation. 3. Lovenox. 4. Complete dexamethasone. 5. Monitor and control blood sugars. Mesfin Yang MD [facility]/MODL /[id number]
--- NOTE | 2020-03-25 18:02 | Progress Note ---
DATE: SUBJECTIVE: Ms. James Holt is doing better. There are no new complaints. PHYSICAL EXAMINATION: GENERAL: She is currently alert and oriented. VITAL SIGNS: Stable, currently afebrile. HEENT: She is not icteric. NECK: Supple. CHEST: Clear. IMPRESSION: Respiratory failure, COVID-19, diabetes mellitus can be discharged home with oxygen, albuterol inhaler as needed. Eliquis 2.5 mg p.o. b.i.d. She is on 5 L, but clinically stable. We will reassess. MD MARY Moore/MODL /[id number]
[2020-03-25] MEDS: SERTRALINE HCL 50 MG TAB PO SCH (21:46)
[2020-03-25] MEDS: AMLODIPINE BESYLATE 10 MG TAB PO SCH (21:46)
[2020-03-25] MEDS: INSULIN GLARGINE 100 UNITS/ML VIAL SQ SCH (21:54)
[2020-03-26] VITALS (8 sets, daily range): BP systolic 135–154; BP diastolic 71–78
[2020-03-26] MEDS: MEROPENEM 500MG/ NS 50ML 50 ML IV SCH ×3 (05:02→20:26)
[2020-03-26] MEDS: NYSTATIN SUSPENSION 5 ML UDC PO SCH ×5 (05:02→20:26)
--- NOTE | 2020-03-26 07:00 | NUR ---
received report from pm RN. pt is alert resting in bed, no s/s of distress. resp non-labored. call light within reach and instructed pt to call RN for help
--- NOTE | 2020-03-26 07:02 | NUR ---
report given to day nurse.
--- NOTE | 2020-03-26 07:06 | NUR ---
[facility] 21.[address] spoke [address] Zee with Dr. Tejada's answering service, waiting for call back 707: Dr tejada called back and gave orders to d/c vancomycin.
--- NOTE | 2020-03-26 08:34 | Progress Note ---
DATE: SUBJECTIVE: The patient is still continue to do very well, where she still feels like she is significantly improving. OBJECTIVE: VITAL SIGNS: Temperature 98.3, pulse 83, blood pressure 146/78, sats 98% on nasal cannula. GENERAL: She is in no apparent distress, lying in bed. CARDIOVASCULAR: Regular rate and rhythm. LUNGS: Decreased breath sounds bilaterally. ABDOMEN: Good bowel sounds. Soft, nontender. EXTREMITIES: No clubbing or cyanosis. NEUROLOGIC: Nonfocal. ASSESSMENT AND PLAN: 1. Coronavirus disease 2019 pneumonia. Continue with current care per Infectious Disease and Pulmonary. 2. Acute respiratory failure with hypoxia. Continue with her O2. 3. Diabetes. Continue with current care and monitoring. 4. Hypertension. Continue with her medication. 5. Leukocytosis. Continue to monitor. Please see hospital chart for full details. MD LYLE Estrada/MODL /[id number]
[2020-03-26] MEDS: PANTOPRAZOLE 40 MG 10ML VIAL IV SCH (09:02)
[2020-03-26] MEDS: INSULIN LISPRO 100 UNIT/1 ML 3ML VIAL SQ SCH ×4 (09:02→21:16)
[2020-03-26] MEDS: METFORMIN HCL 500 MG TAB CR PO SCH ×2 (09:02→17:14)
[2020-03-26] MEDS: ENOXAPARIN 30 MG/0.3 ML SYR SC SCH ×2 (09:03→20:26)
[2020-03-26] MEDS: HYDROCHLOROTHIAZIDE 25 MG TAB PO SCH (09:03)
[2020-03-26] MEDS: CHOLECALCIFEROL 400 UNIT TAB PO SCH ×2 (09:03→17:14)
[2020-03-26] MEDS: ASCORBIC ACID 500 MG TAB PO SCH ×2 (09:03→17:14)
[2020-03-26] MEDS: ZINC SULFATE 220 MG CAP PO SCH (09:03)
[2020-03-26] MEDS: LOSARTAN POTASSIUM 100 MG TAB PO SCH (09:03)
[2020-03-26] MEDS: DEXAMETHASONE SOD PHOS INJ 4 MG/ML VIAL IV SCH (12:58)
--- NOTE | 2020-03-26 18:30 | Progress Note ---
DATE: SUBJECTIVE: The patient is doing better. She is down to 3.5 L. She still has some mild dyspnea with exertion. PHYSICAL EXAMINATION: VITAL SIGNS: The patient is afebrile. The vital signs are stable. Saturation is 98%. HEENT: Shows no facial swelling or erythema. CARDIAC: Reveals regular rate and rhythm. Normal S1, S2. LUNGS: Auscultation of lungs reveals crackles at the bases. There is no wheezing. ABDOMEN: Soft and nontender. There is no rebound or guarding. EXTREMITIES: Shows no leg edema or calf tenderness. There is no cyanosis or clubbing. SKIN: Shows no rashes. NEUROLOGICAL: Shows no focal abnormalities. LABORATORY DATA: White blood cell count is 13.4 and hemoglobin is 12.5. The platelet count is 421. IMPRESSION: 1. Viral pneumonia and COVID-19 infection. 2. Diabetes. 3. Hypertension. PLAN: 1. Arrange for possible discharge home. 2. O2 evaluation. 3. The patient will need low-dose Eliquis for one month at home. 4. Complete dexamethasone for full 10 days. 5. Monitor and control blood sugars. Mesfin Yang MD [facility]/MODL /[id number]
[2020-03-26] MEDS: AMLODIPINE BESYLATE 10 MG TAB PO SCH (20:26)
[2020-03-26] MEDS: SERTRALINE HCL 50 MG TAB PO SCH (20:26)
[2020-03-26] MEDS: INSULIN GLARGINE 100 UNITS/ML VIAL SQ SCH (21:15)
[2020-03-27] VITALS (7 sets, daily range): BP systolic 157–169; BP diastolic 76–92
[2020-03-27] MEDS: NYSTATIN SUSPENSION 5 ML UDC PO SCH ×5 (06:18→21:54)
[2020-03-27] MEDS: MEROPENEM 500MG/ NS 50ML 50 ML IV SCH ×3 (06:18→21:20)
--- NOTE | 2020-03-27 06:56 | NUR ---
RECEIVED BEDSIDE SHIFT REPORT FROM OFF GOING NURSE. PATIENT IS RESTING IN BED. NO ACUTE DISTRESS NOTED AT THIS TIME. CALL LIGHT WITHIN REACH. BED IN THE LOWEST POSITION.
--- NOTE | 2020-03-27 07:15 | NUR ---
report given to day nurse.
--- NOTE | 2020-03-27 07:38 | Progress Note ---
DATE: SUBJECTIVE: A 64-year-old female, who came in with COVID-19 pneumonia. The patient has had respiratory distress. OBJECTIVE: VITAL SIGNS: The patient's temperature at this time is 97.6, pulse of 95, respirations of 20, pulse oximetry of 96% at 4 L of oxygen. HEENT: Normocephalic and atraumatic. Pupils are reactive. CVS: S1 and S2 are normal. LUNGS: Decreased air entry. ABDOMEN: Soft, nontender, nondistended. EXTREMITIES: No edema. LABORATORY VALUES: On , white count is 13.42. Glucoses have been running in the 280s to 290s. ASSESSMENT: Ms. Yanet Ramirez with: 1. Coronavirus disease 2019 pneumonia. 2. Diabetes. 3. Hypertension. PLAN: Arranged for discharge to home. The patient will need Eliquis 2.5 mg twice a day, it will be written. The patient has completed her dexamethasone. Monitor blood sugars and continue with blood pressure medications. As long as we can arrange for O2, the patient can be discharged to home. MD KATE Hung/MODL /[id number]
[2020-03-27 07:41] LABS: BASOPHILS % 0.2 % (0.0-1.0); EOSINOPHILS % 0.2 % (0.0-6.0); HEMATOCRIT 39.7 % (34.2-44.1); HEMOGLOBIN 13.6 g/dL (12.0-16.0); LYMPHOCYTES # (AUTO) 0.9 (1.0-3.2); MEAN CORPUSCULAR HEMOGLOBIN 29.6 pg (28-32); MEAN CORPUSCULAR HGB CONC 34.3 g/dL (31-35); MEAN CORPUSCULAR VOLUME 86.3 fL (81-99); MONOCYTES # (AUTO) 1.4 (0.2-0.8); MONOCYTES % 9.2 % (4.4-11.3); NEUTROPHILS # (AUTO) 12.4 (2.1-6.9); NEUTROPHILS % 83.4 % (38.7-80.0); PLATELET COUNT 587 x10e3/uL (140-360); RED CELL DISTRIBUTION WIDTH 11.9 % (11.7-14.4)
--- NOTE | 2020-03-27 07:42 | NUR ---
infectious disease progress note Patient seen examined chart reviewed medication list reviewed discussed with medical team at length Late entry for 03/26/2020 The patient is doing better. She is down to 3.5 L. She still has some mild dyspnea with exertion. PHYSICAL EXAMINATION: VITAL SIGNS: The patient is afebrile. The vital signs are stable. Saturation is 98%. HEENT: Shows no facial swelling or erythema. CARDIAC: Reveals regular rate and rhythm. Normal S1, S2. LUNGS: Auscultation of lungs reveals crackles at the bases. There is no wheezing. ABDOMEN: Soft and nontender. There is no rebound or guarding. EXTREMITIES: Shows no leg edema or calf tenderness. There is no cyanosis or clubbing. SKIN: Shows no rashes. NEUROLOGICAL: Shows no focal abnormalities. LABORATORY DATA: White blood cell count is 13.4 and hemoglobin is 12.5. The platelet count is 421. IMPRESSION: 1. Viral pneumonia and COVID-19 infection. 2. Diabetes. 3. Hypertension. PLAN: 1. Arrange for possible discharge home.
[2020-03-27 08:04] LABS: ANION GAP 17.3 mmol/L (8-16); BLOOD UREA NITROGEN 11 mg/dL (7-26); BUN/CREATININE RATIO 18 (6-25); CALCIUM 9.4 mg/dL (8.4-10.2); CARBON DIOXIDE 25 mmol/L (22-29); CHLORIDE 95 mmol/L (98-107); EST GLOMERULAR FILTRATION RATE > 60 ML/MIN (60-); GLUCOSE 95 mg/dL (74-118); POTASSIUM 3.3 mmol/L (3.5-5.1); SODIUM 134 mmol/L (136-145)
--- NOTE | 2020-03-27 08:13 | Diagnostic Imaging Report ---
Examination: Single AP view of the chest. COMPARISON: Portable chest 03/22/2020 INDICATION: SOB, COVID IMPRESSION: 1. Lines and Tubes: None 2. Slight interval improvement/improved aeration of the upper lungs, when compared to prior exam. There are persistent diffuse bilateral interstitial and alveolar opacities consistent with multifocal pneumonia. 3. Cardiomediastinal silhouette is normal. Pulmonary vasculature is normal. 4. No acute bony abnormalities. Signed by: Dr. Gary Mullen M.D. on 03/27/2020 8:09 AM
[2020-03-27] MEDS: INSULIN LISPRO 100 UNIT/1 ML 3ML VIAL SQ SCH ×4 (08:30→21:00)
[2020-03-27] MEDS ORDERED: POTASSIUM CHLORIDE 20 MEQ TAB CR PO SCH (09:00)
[2020-03-27] MEDS: PANTOPRAZOLE 40 MG 10ML VIAL IV SCH (09:30)
[2020-03-27] MEDS: METFORMIN HCL 500 MG TAB CR PO SCH ×2 (09:30→16:49)
[2020-03-27] MEDS: ASCORBIC ACID 500 MG TAB PO SCH ×2 (09:38→16:49)
[2020-03-27] MEDS: ZINC SULFATE 220 MG CAP PO SCH (09:38)
[2020-03-27] MEDS: LOSARTAN POTASSIUM 100 MG TAB PO SCH (09:38)
[2020-03-27] MEDS: APIXAB 2.5 MG TABLET PO SCH ×2 (09:38→16:49)
[2020-03-27] MEDS: HYDROCHLOROTHIAZIDE 25 MG TAB PO SCH (09:38)
[2020-03-27] MEDS: CHOLECALCIFEROL 400 UNIT TAB PO SCH ×2 (09:38→16:49)
--- NOTE | 2020-03-27 11:40 | NUR ---
PATIENT REFUSING TO SIGN CHOICE FOR HOME OXYGEN. SHE STATED "I'M NOT READY TO GO HOME. I HAVE STEPS THAT I HAVE TO WORK ON MY HEAD BEFORE LEAVING. I HAVE DEPRESSION AND ANXIETY. TELL THE DOCTOR I'M NOT READY RUN, RUN" NOTIFIED DR. KAYE, NEW ORDERS RECEIVED.
--- NOTE | 2020-03-27 11:49 | NUR ---
ORDER RECEIVED FOR HOME O2 @ 4L/NC. CALL TO THE PT'S ROOM AND CELL PHONE. NO ANSWER. LEFT VM ON CELL. ATTEMPTED TO CALL ON THE NURSE'S CALL STATION. PT STATES SHE WAS DYING AND NEEDED TO REST AND REFUSED TO SPEAK W RAISA. SPOKE W PIPER / BEDSIDE RN. SHE ATTEMPTED TO GET CHOICE, BUT PT REFUSED TO SIGN. WILL F/U LATER.
[2020-03-27] MEDS: DEXAMETHASONE SOD PHOS INJ 4 MG/ML VIAL IV SCH (11:55)
[2020-03-27] MEDS ORDERED: SERTRALINE HCL 50 MG TAB PO SCH (12:00)
[2020-03-27] MEDS ORDERED: LORAZEPAM INJ 2 MG/ML VIAL IV ONE (15:00)
--- NOTE | 2020-03-27 16:01 | Progress Note ---
DATE: SUBJECTIVE: Ms. Ramirez is doing about the same. OBJECTIVE: VITAL SIGNS: Stable, currently afebrile. HEENT: She is not icteric. NECK: Supple. CHEST: Clear. HEART: S1, S2. No murmurs. ABDOMEN: Soft. NEUROLOGIC: She is confused today, she was supposed to go home, but it was canceled because of confusion. Psych is seeing her. IMPRESSION: Confusion. Psych is consulted, stable from Infectious Disease point of view. We will follow. MD MARY Moore/MODL /[id number]
--- NOTE | 2020-03-27 19:07 | NUR ---
BEDSIDE SHIFT REPORT GIVEN TO ONCOMING NURSE. PATIENT IS IN STABLE CONDITION, NO ACUTE DISTRESS NOTED AT THIS TIME. CALL LIGHT WITHIN REACH. BED IN THE LOWEST POSITION.
--- NOTE | 2020-03-27 19:30 | NUR ---
Patient visited in room during nursing rounds. On droplet isolation for positive covid test. Alert and oriented x3. Ambulatory in room and uses bedside commode prn. Sinus rhythm (88) on telemetry reading. Pt on IV antibiotic treatment (IV Merrem) as scheduled. O2 saturation 99% on 4L NC. Pt appear a bit anxious but was able to calm down after primary nurse (Moises) talked to her and explained some issues about her health. Call mccarthy within reach. Will monitor pt closely.
[2020-03-27] MEDS ORDERED: SERTRALINE HCL 100 MG TAB PO SCH (21:00)
[2020-03-27] MEDS: INSULIN GLARGINE 100 UNITS/ML VIAL SQ SCH (21:15)
[2020-03-27] MEDS: AMLODIPINE BESYLATE 10 MG TAB PO SCH (21:15)
[2020-03-28] VITALS: BP 137/86
[2020-03-28 04:00] VITALS: BP 137/82
[2020-03-28] MEDS: NYSTATIN SUSPENSION 5 ML UDC PO SCH ×4 (05:55→16:25)
[2020-03-28] MEDS: MEROPENEM 500MG/ NS 50ML 50 ML IV SCH ×2 (06:00→14:00)
--- NOTE | 2020-03-28 06:46 | NUR ---
RECEIVED BEDSIDE SHIFT REPORT FROM OFF GOING NURSE. PATIENT IS RESTING IN BED, NO S/S OF ACUTE DISTRESS NOTED. CALL LIGHT WITHIN REACH. BED IN THE LOWEST POSITION.
[2020-03-28] MEDS: INSULIN LISPRO 100 UNIT/1 ML 3ML VIAL SQ SCH ×3 (07:30→16:26)
[2020-03-28 08:20] VITALS: BP 156/75
[2020-03-28] MEDS: METFORMIN HCL 500 MG TAB CR PO SCH ×2 (08:53→16:25)
[2020-03-28] MEDS: PANTOPRAZOLE 40 MG 10ML VIAL IV SCH (08:53)
[2020-03-28] MEDS: ZINC SULFATE 220 MG CAP PO SCH (08:54)
[2020-03-28] MEDS: HYDROCHLOROTHIAZIDE 25 MG TAB PO SCH (08:54)
[2020-03-28] MEDS: ASCORBIC ACID 500 MG TAB PO SCH ×2 (08:54→16:25)
[2020-03-28] MEDS: APIXAB 2.5 MG TABLET PO SCH ×2 (08:54→16:25)
[2020-03-28] MEDS: CHOLECALCIFEROL 400 UNIT TAB PO SCH ×2 (08:54→16:25)
[2020-03-28] MEDS: LOSARTAN POTASSIUM 100 MG TAB PO SCH (08:54)
[2020-03-28 08:55] VITALS: BP 156/75
--- NOTE | 2020-03-28 10:24 | NUR ---
DISCUSSED PT IN [facility] THIS AM. CASEY SALDAÑA GOT CHOICE FROM PT THIS AM. PT CHOSE [facility]. FAXED REFERRAL TO [facility], BUT THEY DO NOT ACCEPT [facility]. REFERRAL FAXED TO [facility] @ [facility]: [phone] / FAX: [phone]
[2020-03-28 11:20] VITALS: BP 139/79
[2020-03-28] MEDS: DEXAMETHASONE SOD PHOS INJ 4 MG/ML VIAL IV SCH (12:00)
[2020-03-28 14:54] VITALS: BP 146/81
--- NOTE | 2020-03-28 15:41 | NUR ---
PER DR. KAYE, IF ELIQUIS IS TOO EXPENSIVE PATIENT CAN TAKE ASPIRIN 325MG PO DAILY FOR 30 DAYS.
[2020-03-28] MEDS ORDERED: ELIQUIS2.5 MG PO (15:49)
[2020-03-28] MEDS ORDERED: RISPERIDONE 0.5 MG TAB PO PRN (18:00)
--- NOTE | 2020-03-28 18:16 | NUR ---
SUBJECTIVE: Ms. Ramirez is doing about the same. NO NEW PROBLEMS seen and examined OBJECTIVE: VITAL SIGNS: Stable, currently afebrile. HEENT: She is not icteric. NECK: Supple. CHEST: Clear. HEART: S1, S2. No murmurs. ABDOMEN: Soft. NEUROLOGIC: stable no new IMPRESSION: Confusion. Psych is consulted, stable from Infectious Disease point of view. DC HOME A 64-year-old female, who came in with COVID-19 pneumonia. The patient has had respiratory distress. OBJECTIVE: VITAL SIGNS: The patient's temperature at this time is 97.6, pulse of 95, respirations of 20, pulse oximetry of 96% at 4 L of oxygen. HEENT: Normocephalic and atraumatic. Pupils are reactive. CVS: S1 and S2 are normal. LUNGS: Decreased air entry. ABDOMEN: Soft, nontender, nondistended. EXTREMITIES: No edema. LABORATORY VALUES: On , white count is 13.42. Glucoses have been running in the 280s to 290s. ASSESSMENT: Ms. Yanet Ramirez with: 1. Coronavirus disease 2019 pneumonia. 2. Diabetes. 3. Hypertension.
--- NOTE | 2020-03-28 18:42 | NUR ---
Nutrition Screen Note RD Recommendation for Physician: - Continue current diet Plan of Care: RD following, monitoring for tolerance and adequacy Nutrition reason for involvement: follow up Primary Diagnose(s): pneumonia due to Covid-19 PMH: DM, HTN Ht: 62 in Wt: 151 lb BMI: 27.6 kg/m2 IBW: [address] Assessment: 03/28: Follow up. Pt continues with good appetite and intake, 75-100% of meals. No GI distress reported, LBM documented 03/26. Skin intact. Labs and meds reviewed, noted elevated anion gap and BG trend. Chart reviewed. Will continue to monitor. 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 Pt with hypoxia and SOB on admit. Pt evaluated for LOS. Attempted to call pt room, no answer- unable to obtain hx at this time. No wt loss or poor intake reported per admit. No GI distress, LBM 03/20. Skin intact. Chart reviewed. Labs and meds noted. Will continue to monitor. Current Diet: 1800 ADA Malnutrition Evaluation (03/21/20) The patient does not meet criteria for a specified degree of malnutrition at this time. Will re-evaluate at follow-up as appropriate. Unable to assess per current isolation protocol. Diet Education Needs Assessment: Diet education not indicated at this time Diet tolerance: tolerating Nutrition Care Level: low Signed: Promise De La Paz RD, LD, [facility]
--- NOTE | 2020-03-28 19:02 | NUR ---
DISCHARGE TEACHING REVIEWED OVER THE PHONE WITH PATIENT'S SON, SHARMAINE ROMAN, HE VERBALIZED UNDERSTANDING. NOTIFIED SON THAT PATIENT NEEDS TO FOLLOW UP OUTPATIENT WITH PSYCHIATRY. NOTIFIED SEARCH ENGINE OPTIMIZATION SPECIALIST NURSE THAT PATIENT IS READY TO BE DISCHARGED. SON ON HIS WAY.
--- NOTE | 2020-03-28 19:05 | NUR ---
PER SON, SHARMAINE ROMAN, HE HAS ARRANGED FOR SOMEONE TO STAY WITH PATIENT FOR SAFETY.
--- NOTE | 2020-03-28 19:30 | NUR ---
Spoke with patient along with day nurse (Ashley) to explain discharge orders and that her son, Jozef, is on his way. Patient stated she is not ready to go and wants to stay. Pt very adamant in staying and keeps mentioning she is losing her mind and punching her head on purpose. Patient informed will come back. Stockbroker, Deanne Cisneros, made aware of the situation. HS stated she will talk to patient and convince pt she can go home safely.
--- NOTE | 2020-03-28 19:38 | NUR ---
Building Analyst/Supervisor in room along with day nurse (Ashley) and helped explain to patient that she could be discharged home safely tonight. Patient understood and finally agreed to go home.
--- NOTE | 2020-03-28 19:40 | NUR ---
IV LINE TO LEFT ANTECUBITAL DISCONTINUED WITH TIP INTACT, PRESSURE APPLIED TO SITE, NO BLEEDING NOTED. BOX LIDDER DISCONTINUED.
--- NOTE | 2020-03-28 19:50 | NUR ---
Patient assisted downstairs by night nurse (Moises) and accompanied by Extension Course Coordinator (Deanne). Patient left unit in stable condition via wheelchair. Spoke and reminded son about discharge orders. Son said he is aware. Son drove patient in private vehicle (car) home safely.
[2020-03-28] MEDS ORDERED: RISPERIDONE 0.5 MG TAB PO SCH (21:00)
[2020-03-29] MEDS ORDERED: PANTOPRAZOLE SOD 40 MG TABEC PO SCH (07:30)
--- NOTE | 2020-03-29 13:32 | Consultation ---
DATE OF CONSULTATION: 03/28/2020 Psychiatric Consultation The patient is evaluated and events noted. REASON FOR CONSULTATION: To evaluate the patient's psychosis. HISTORY OF PRESENT ILLNESS: The patient is a 64-year-old female, admitted to the hospital for pneumonia and positive for COVID. Psych consulted for psychosis. As per record, the patient has history of diabetes and hypertension. As per nurse, the patient has been confused. She is talking to people who are not there and stating that her has . The patient was assessed through telemedicine. I made a call and spoke to the patient. She is oriented to self, place, year, and time. However, she is confused, not make any sense. She is somewhat manic. She reports feeling anxious. She denies any suicidal or homicidal ideation. She is hyper-yazidism. She reports poor sleep. Denies any appetite problem. She is having somewhat flat ideas. She claims that she is living with her but the son states that the patient is living alone. PAST PSYCHIATRIC HISTORY: She denies past suicide attempts. She denies alcohol and drug use. FAMILY HISTORY: The patient claims that aunt has dementia. SOCIAL HISTORY: The patient currently lives with her . Family reports the patient lives alone. MENTAL STATUS EXAM: The patient is an elderly female. She is alert, awake, and oriented to situation. Her mood is anxious. She denies any suicidal or homicidal ideation. Denies any hallucination. Abnormally confused. Memory appears to be somewhat impaired. CURRENT LABORATORY DATA: WBC 14.91, RBC 4.60, hemoglobin 13.6, hematocrit 39.7, platelets 587. Chemistry; sodium 134, potassium 3.30, chloride 95, CO2 of 25, BUN 11, creatinine 0.60, AST 18, ALT 28. MEDICATIONS: 1. Dexamethasone. 2. Ceftriaxone. 3. Insulin. 4. Eliquis. 5. Nystatin. 6. Folic acid. 7. Vitamin D. 8. Metformin. 9. Zinc. 10. Losartan. 11. Protonix. 12. Zoloft 100 mg p.o. at bedtime. 13. Norvasc. 14. Vancomycin. ASSESSMENT: 1. Unspecified psychosis. 2. Rule out bipolar. PLAN: 1. Add Risperdal 0.5 mg p.o. at bedtime. 2. Add Risperdal p.r.n. 3. Continue with Zoloft. 4. Discussed with nurse that the patient can go home if family member was able to come pick her up and she has a supervised setting and follow up with outpatient psychiatry. Dictated by Opal Mcdonald PA-C Moy Ovalle MD QTV/MODL /[id number]
== END 2020-03-28 20:00 | disposition home or self-care (01) | DRG 177 ==
LOC: FSED 03-16 00:04 → ERHOLD 03-16 03:10 → MED/SURG3 03-16 09:10
PROVIDERS: ADMIT Family Medicine; ATTEND Family Medicine
DX: U07.1 COVID-19 (principal); J12.89 Other viral pneumonia; J15.9 Unspecified bacterial pneumonia; J96.01 Acute respiratory failure with hypoxia; B37.0 Candidal stomatitis; I10 Essential (primary) hypertension; R09.02 Hypoxemia; E11.9 Type 2 diabetes mellitus without complications; E78.5 Hyperlipidemia, unspecified; E87.6 Hypokalemia; F41.9 Anxiety disorder, unspecified; F32.9 Major depressive disorder, single episode, unspecified; F29 Unspecified psychosis not due to a substance or known physiological condition; D72.829 Elevated white blood cell count, unspecified
CPT/HCPCS: 36415; 71045; 80048; 80053; 80202; 81003; 82948; 83880; 85025; 85379; 94664; 96361; 96372; 96374; 96376; 99284; J0456; J0696; J1100; J1650; J1815; J1817; J2060; J3370; J3480; J7030; J7050; U0002